=== PATIENT | male | born 1945 | race Two or more races ===

== ENCOUNTER 2023-07-16 13:58 | Inpatient (IN) | payer MEDICARE, OTHER ==
[~2023-07-16] VITALS: Ht 182.9 cm; Wt 96.0 kg
[2023-07-16] MEDS: DexAMETHasone SOD PHOS 10MG/1ML VIAL INJ IM ONE (14:22)
[2023-07-16] MEDS: IPRATROPIUM BROM 0.5 MG/2.5ML INH SOL NEB ONE (14:50)
[2023-07-16] MEDS: ALBUTEROL SULF 2.5 MG/0.5ML(0.5%) NEB SOLN NEB ONE (14:50)
[2023-07-16 15:00] LABS: Basophils # (auto) 0.1 10 ^3/uL (0-0.2); Basophils % (auto) 0.8 % (0.0-2.0); Eosinophils # (auto) 0.1 10 ^3/uL (0-0.8); Hematocrit 43.2 % (41.0-53.0); Hemoglobin 14.1 g/dL (13.5-17.5); Lymphocytes # (auto) 1.4 10 ^3/uL (0.4-5.4); Lymphocytes % (auto) 13.6 % (10.0-50.0); Mean Corpuscular Hemoglobin 33.6 pg (28.0-32.0); Mean Corpuscular Hgb Conc. 32.6 g/dL (32.0-36.0); Mean Corpuscular Volume 103.1 fL (80.0-100.0); Monocytes # (auto) 0.8 10 ^3/uL (0-1.3); Neutrophils # (auto) 7.6 10 ^3/uL (1.6-8.6); Neutrophils % (auto) 76.6 % (37.0-80.0); Nucleated Red Blood Cells % 0.2 %; Red Cell Distribution Width 14.6 % (11.8-14.3); White Blood Cell 9.9 10^3/uL (4.4-10.8)
[2023-07-16 15:17] LABS: Alanine Aminotransferase 36 U/L (7-40); Alkaline Phosphatase 145 U/L (46-116); Anion Gap 8 (5-15); Aspartate Aminotransferase 23 U/L (13-40); BUN/Creatinine Ratio 33.1 (10.0-20.0); Calcium 9.4 mg/dL (8.7-10.4); Carbon Dioxide 28 mmol/L (20-30); Chloride 109 mmol/L (98-107); Glucose 143 mg/dL (74-106); Lipase 122 U/L (12-53); Sodium 145 mmol/L (136-145)
[2023-07-16 15:18] LABS: Bilirubin, Total 0.6 mg/dL (0.2-1.0); Total Protein 6.6 g/dL (5.7-8.2)
[2023-07-16 15:22] LABS: Blood Urea Nitrogen 103 mg/dL (9-23)
[2023-07-16] MEDS: FUROSEMIDE 40 MG/4 ML VIAL IV ONE (19:15)
[2023-07-16 20:07] VITALS: PULSE 80; RESP 20; O2SAT 94
[2023-07-16] MEDS ORDERED: HYDROcodone-ACET 5/325MG TAB PO PRN (21:15)
[2023-07-16] MEDS ORDERED: DOCUSATE SOD 100 MG CAP PO PRN (21:15)
[2023-07-16] MEDS ORDERED: DEXTROSE (50%) 50ML SYRG IV PRN (21:15)
[2023-07-16] MEDS ORDERED: ONDANSETRON HCL 4 MG/2 ML VIAL IV PRN (21:15)
[2023-07-16] MEDS ORDERED: ACETAMINOPHEN 325 MG TAB PO PRN (21:15)
[2023-07-16] MEDS: ACCU-CHEK COMFORT CURVE STRIP VI SCH (22:29)
[2023-07-16] MEDS: FAMOTIDINE (10MG/ML) 2ML VL IV SCH (22:33)
[2023-07-16] MEDS: ATORVASTATIN 20 MG TAB PO SCH (22:34)
[2023-07-16] MEDS: HEPARIN SODIUM (PORCINE) 5000 UNITS/ML 1ML VIAL SC SCH (22:34)
[2023-07-16] MEDS: InsuLIN REG 1unit/0.01ml Soln (100units/ml) SC SCH (22:37)
[2023-07-16 23:35] VITALS: O2SAT 97
[2023-07-16 23:36] VITALS: BP 122/50; PULSE 80; TEMP 98.2; O2SAT 97
[2023-07-16] MEDS ORDERED: MORPHINE SULFATE INJ 2 MG/ml SYRG IV PRN (23:45)
[2023-07-16] MEDS ORDERED: NITROGLYCERIN 0.4 MG SL TAB SL PRN (23:45)
[2023-07-17] VITALS (10 sets, daily range): BP systolic 114–143; BP diastolic 55–68; PULSE 67–88; RESP 16–20; TEMP 97.6–98.2; O2SAT 95–99
[2023-07-17] MEDS: InsuLIN REG 1unit/0.01ml Soln (100units/ml) SC SCH (06:43)
[2023-07-17] MEDS: LEVOTHYROXINE SODIUM 50 MCG TAB PO SCH (06:44)
[2023-07-17 07:14] LABS: Basophils # (auto) 0 10 ^3/uL (0-0.2); Eosinophils # (auto) 0 10 ^3/uL (0-0.8); Hemoglobin 14.1 g/dL (13.5-17.5); Lymphocytes # (auto) 0.4 10 ^3/uL (0.4-5.4); Lymphocytes % (auto) 7.3 % (10.0-50.0); Monocytes # (auto) 0.2 10 ^3/uL (0-1.3); Monocytes % (auto) 3.7 % (0.0-12.0); Neutrophils # (auto) 5.3 10 ^3/uL (1.6-8.6); Red Cell Distribution Width 14.3 % (11.8-14.3); White Blood Cell 5.9 10^3/uL (4.4-10.8)
[2023-07-17 07:19] LABS: Basophils % (auto) 0.1 % (0.0-2.0); Hematocrit 42.4 % (41.0-53.0); Mean Corpuscular Hemoglobin 34.4 pg (28.0-32.0); Mean Corpuscular Hgb Conc. 33.3 g/dL (32.0-36.0); Mean Corpuscular Volume 103.2 fL (80.0-100.0); Neutrophils % (auto) 88.9 % (37.0-80.0); Red Blood Cells 4.11 10^6/uL (4.5-5.90)
[2023-07-17 07:31] LABS: Alanine Aminotransferase 28 U/L (7-40); Albumin 4.2 g/dL (3.2-4.8); Alkaline Phosphatase 130 U/L (46-116); Anion Gap 13 (5-15); Aspartate Aminotransferase 18 U/L (13-40); BUN/Creatinine Ratio 30.9 (10.0-20.0); Bilirubin, Total 0.9 mg/dL (0.2-1.0); Carbon Dioxide 23 mmol/L (20-30); Chloride 109 mmol/L (98-107); Potassium 4.5 mmol/L (3.5-5.1); Sodium 145 mmol/L (136-145); Total Protein 7.2 g/dL (5.7-8.2)
[2023-07-17 07:33] LABS: Glucose 274 mg/dL (74-106)
[2023-07-17 07:36] LABS: Blood Urea Nitrogen 92 mg/dL (9-23)
[2023-07-17] MEDS: B-COMPLEX W/ C & FOLIC ACID(NEPHROVITE TAB) PO SCH (10:29)
[2023-07-17] MEDS: ASPirin 81 mg TAB PO SCH (10:30)
[2023-07-17] MEDS: FUROSEMIDE 100 MG/10ML VIAL IV SCH (18:10)
[2023-07-17 22:00] LABS: Urine Bacteria None Seen /hpf (None Seen)
[2023-07-17 22:20] LABS: Urine Blood Negative /uL (Negative); Urine Clarity Clear (Clear); Urine Color Colorless (Yellow); Urine Protein, UAD Negative (Negative); Urine Specific Gravity 1.008 (1.001-1.035); Urine Urobilinogen Normal (Negative); Urine WBC <1 /hpf (0 - 3)
[2023-07-17 22:51] LABS: Sodium Urine 93 mmol/L (40-220)
[2023-07-17 22:56] LABS: Protein, Urine < 6.0 mg/dL (0.0-11.9)
[2023-07-17 22:59] LABS: Creatinine, Urine 23.96 mg/dL (30.0-125.0)
[2023-07-18] VITALS (9 sets, daily range): BP systolic 94–137; BP diastolic 58–70; PULSE 52–112; RESP 16–18; TEMP 97.6–98.4; O2SAT 95–100
[2023-07-18 07:30] LABS: Anion Gap 11 (5-15); Carbon Dioxide 25 mmol/L (20-30); Chloride 109 mmol/L (98-107); Potassium 4.2 mmol/L (3.5-5.1); Sodium 145 mmol/L (136-145)
[2023-07-18 07:31] LABS: Calcium 10.1 mg/dL (8.5-10.1)
[2023-07-18 07:36] LABS: BUN/Creatinine Ratio 30.5 (10.0-20.0)
[2023-07-18 07:39] LABS: Blood Urea Nitrogen 76 mg/dL (9-23); Glucose 145 mg/dL (74-106)
[2023-07-18] MEDS: CLOPIDOGREL BISULFATE 75 MG TAB PO SCH (10:07)
[2023-07-18 11:06] LABS: PSA Free 1.51 ng/mL; Prostate Specific Antigen 4.3 ng/mL (0.0-4.0)
[2023-07-18] MEDS: IPRATROPIUM BROM 0.5 MG/2.5ML INH SOL NEB PRN (11:25)
[2023-07-18] MEDS: ALBUTEROL SULF 2.5 MG/0.5ML(0.5%) NEB SOLN NEB PRN (11:25)
[2023-07-18] MEDS ORDERED: GABA-1250 PO (20:05)
[2023-07-18] MEDS ORDERED: CLOP75TA28 PO (20:05)
[2023-07-18] MEDS ORDERED: METO25TA93 PO (20:05)
[2023-07-18] MEDS ORDERED: ALLO100T PO (20:05)
[2023-07-18] MEDS ORDERED: TRAM50TA2 PO (20:07)
[2023-07-18] MEDS ORDERED: FURO40TA4 PO (20:07)
[2023-07-18] MEDS ORDERED: LEVO150T10 PO (20:07)
[2023-07-18] MEDS ORDERED: EMPA1TAB PO (20:07)
[2023-07-18] MEDS ORDERED: SACU1TAB7 PO (20:07)
[2023-07-19] VITALS (11 sets, daily range): BP systolic 119–146; BP diastolic 64–80; PULSE 63–102; RESP 16–20; TEMP 97.4–98.2; O2SAT 96–99
[2023-07-19 05:13] LABS: Chloride 109 mmol/L (98-107); Potassium 3.7 mmol/L (3.5-5.1); Sodium 143 mmol/L (136-145)
[2023-07-19 05:14] LABS: Anion Gap 8 (5-15); Carbon Dioxide 26 mmol/L (20-30)
[2023-07-19 05:15] LABS: Calcium 9.3 mg/dL (8.7-10.4)
[2023-07-19 05:19] LABS: Glucose 140 mg/dL (74-106)
[2023-07-19 05:20] LABS: BUN/Creatinine Ratio 31.6 (10.0-20.0); Blood Urea Nitrogen 73 mg/dL (9-23)
[2023-07-19] MEDS: ENOXAPARIN SOD 40 MG/0.4 ML SYRINGE SC SCH (09:16)
[2023-07-19] MEDS ORDERED: FURO20TA3 PO (15:55)
[2023-07-19] MEDS ORDERED: ATOR10TA PO (15:59)
[2023-07-19] MEDS ORDERED: INSU1.2I SC (15:59)
[2023-07-19] MEDS ORDERED: FERR1TAB8 PO (15:59)
[2023-07-19] MEDS ORDERED: PANT40TA2 PO (15:59)
[2023-07-19] MEDS: TAMSULOSIN HYDROCHLORIDE 0.4 MG CAP PO SCH (17:25)
[2023-07-20 00:33] VITALS: BP 129/72; PULSE 87; RESP 15; TEMP 97.6; O2SAT 97
[2023-07-20 05:48] LABS: Anion Gap 8 (5-15); Carbon Dioxide 24 mmol/L (20-30); Chloride 109 mmol/L (98-107); Potassium 3.5 mmol/L (3.5-5.1); Sodium 141 mmol/L (136-145)
[2023-07-20 05:49] LABS: Calcium 9.3 mg/dL (8.7-10.4)
[2023-07-20 05:54] LABS: BUN/Creatinine Ratio 31.3 (10.0-20.0); Glucose 157 mg/dL (74-106)
[2023-07-20 06:25] LABS: Blood Urea Nitrogen 62 mg/dL (9-23)
[2023-07-20 08:15] VITALS: PULSE 96
[2023-07-20 09:00] VITALS: BP 127/65; PULSE 87; RESP 20; TEMP 97.6; O2SAT 94
[2023-07-20 10:48] VITALS: O2SAT 98
[2023-07-20 12:09] VITALS: BP 127/65; PULSE 87; RESP 20; TEMP 97.6; O2SAT 94
[2023-07-20] MEDS ORDERED: SACUBITRIL-VALSARTAN 24mg/26mg TAB PO SCH (16:00)
== END 2023-07-20 13:10 | disposition home or self-care (01) | DRG 291 ==
LOC: ER 13:58 → TELE 23:46 → TELE-WESTW 07-17 06:26
PROVIDERS: ADMIT Nurse Practitioner Family; ATTEND Family Medicine
DX: I13.2 Hypertensive heart and chronic kidney disease with heart failure and with stage 5 chronic kidney disease, or end stage renal disease (principal); I50.23 Acute on chronic systolic (congestive) heart failure; J96.01 Acute respiratory failure with hypoxia; N18.6 End stage renal disease; N17.9 Acute kidney failure, unspecified; J44.1 Chronic obstructive pulmonary disease with (acute) exacerbation; E11.51 Type 2 diabetes mellitus with diabetic peripheral angiopathy without gangrene; E11.22 Type 2 diabetes mellitus with diabetic chronic kidney disease; I48.91 Unspecified atrial fibrillation; E78.00 Pure hypercholesterolemia, unspecified; I95.9 Hypotension, unspecified; I25.10 Atherosclerotic heart disease of native coronary artery without angina pectoris; N41.9 Inflammatory disease of prostate, unspecified; M17.0 Bilateral primary osteoarthritis of knee; I34.0 Nonrheumatic mitral (valve) insufficiency; E03.9 Hypothyroidism, unspecified; N40.0 Benign prostatic hyperplasia without lower urinary tract symptoms; K62.89 Other specified diseases of anus and rectum; Z79.02 Long term (current) use of antithrombotics/antiplatelets; Z95.1 Presence of aortocoronary bypass graft; Z79.82 Long term (current) use of aspirin; Z98.61 Coronary angioplasty status; Z79.4 Long term (current) use of insulin; Z79.899 Other long term (current) drug therapy
CPT/HCPCS: 36415; 71045; 71250; 74176; 76775; 80048; 80053; 81001; 82570; 82962; 83605; 83690; 83880; 84154; 84156; 84300; 84443; 84484; 85025; 93005; 93306; 94640; 96372; 96374; 97163; G0378; J1100; J1815; J3490

== ENCOUNTER 2024-10-09 04:14 | Inpatient (IN) | payer MEDICARE, OTHER ==
[2024-10-09] VITALS (12 sets, daily range): BP systolic 117–151; BP diastolic 62–87; PULSE 94–113; RESP 20–28; TEMP 98–99.3; O2SAT 92–100
[~2024-10-09] VITALS: Ht 182.9 cm; Wt 98.1 kg
[~2024-10-09 04:14] MED LIST: ALLO100T PO; ATOR10TA PO; CLOP75TA28 PO; EMPA1TAB PO; FERR1TAB8 PO; FURO20TA3 PO; GABA-1250 PO; INSU1.2I SC; LEVO150T10 PO; METO25TA93 PO; PANT40TA2 PO; SACU1TAB7 PO; TRAM50TA2 PO
--- NOTE | 2024-10-09 04:40 | ED.PDOC ---
History of Present Illness HPI Comments 79-year-old male with a history of CHF, AFib, hypertension, dyslipidemia and oxygen dependence brought in by EMS, transferred from [facility] for CHF exacerbation. Patient presented there complaining of shortness of breath that started yesterday. Workup included CT chest which show ed moderate right and small left pleural effusions, subtle diffuse perilymphatic nodularity, nonspecific but may reflect an infectious/inflammatory etiology. Labs there were remarkable for potassium of 5.4, BUN 71 and creatinine 2.3, BNP was 9840, troponin was within normal limits. On arrival to ED, the patient states he is not in respiratory distress on oxygen by mask and is not having chest pain. Chief Complaint: Shortness of Breath Time Seen by MD: 04:33 Primary Care Provider: DAYA Allergies: Coded Allergies: Codeine (Verified Allergy, Mild, hives, 07/19/23) Iodine (Verified Allergy, Unknown, 07/16/23) Warfarin (Verified Allergy, Unknown, 10/09/24) Home Meds Reported Medications Atorvastatin Calcium (Lipitor) 10 Mg Tab, 1 TAB PO DAILY 07/19/23 Insulin Glargine (Toujeo Solostar) 300 Unit/Ml Inj, 50 UNIT SC DAILY 07/19/23 Ferrous Sulfate (Gnp Iron) 325 Mg Tab, 1 TAB PO BID 07/19/23 Pantoprazole Sodium Sesquihydr (Protonix) 40 Mg Tab, 1 TAB PO DAILY 07/19/23 Furosemide (Furosemide) 20 Mg Tab, PO UD Take 1 tablet (20 mg) by mouth in the morning, and take 2 tablets (40 mg) by mouth in the evening. 07/19/23 Tramadol Hcl (Tramadol Hcl) 50 Mg Tab, 1 TAB PO BID 07/18/23 Empagliflozin (Jardiance) 10 Mg Tab, 10 MG PO, TAB 07/18/23 Levothyroxine Sodium (Levothyroxine Sodium) 150 Mcg Tab, 150 MCG PO QAM for 30 Days 07/18/23 Sacubitril-Valsartan (Entresto 49-51 mg) 1 Tab Tab, 1 TAB PO BID 07/18/23 Gabapentin (Gabapentin) 300 Mg Cap, 1 CAP PO BID, #90 CAP 5 Refills 07/18/23 Allopurinol (Allopurinol) 100 Mg Tab, 3 TAB PO DAILY 07/18/23 Metoprolol Succinate (Metoprolol Succinate Er) 25 Mg Tab, 25 MG PO DAILY for 30 Days, MG 07/18/23 Clopidogrel Bisulfate (Plavix) 75 Mg Tab, 1 TAB PO DAILY, #90 TAB 1 Refill 07/18/23 Mode of Arrival: EMS Past Medical History PAST MEDICAL HISTORY: AFIB, CHF, CKF, COPD, DM, HTN Surgical History: CABG, Denies all surgeries Family History Family History: Reviewed,noncontributory to illness Social History Smoker: Cigarettes Alcohol: Denies ETOH Use Drugs: Denies Drug Use Lives In: Home All Other Systems: Reviewed and Negative (Comprehensive systems review obtained and negative except for what is stated in the HPI.) Physical Exam General Appearance: No Apparent Distress HEENT: Other (Pupils and face symmetric. Moist mucous membranes.) Neck: Full Range of Motion, Normal Inspection Respiratory: Decreased Breath Sounds, No Accessory Muscle Use, No Respiratory Distress Cardiovascular: JVD, Tachycardia Breast Exam: Deferred Gastrointestinal: Non Tender, Soft Genitalia: Deferred Pelvic: Deferred Rectal: Deferred Extremities: Leg edema, Normal range of motion, Pedal edema Neurologic: Alert (Oriented x4), Normal Affect, Normal Mood, Other (No gross focal deficit) Cerebellar Function: NOT DONE Reflexes: NOT DONE Skin: Dry, Normal Color, Warm Lymphatic: NOT DONE Was a procedure done? Was a procedure done?: No EKG EKG : Comments AFib with RVR, rate 103, QRS prolonged at 135, QTC prolonged at 517, normal axis, nonspecific T changes. Differential Dx Considerations may include: CHF, COPD, rapid AFib, mi, PE, among others X-Ray, Labs, Meds, VS Vital Signs Date Time Temp Pulse Resp B/P (MAP) Pulse Ox O2 Delivery O2 Flow Rate FiO2 10/09/24 06:00 98.2 119 24 144/65 (91) 97 98.2 10/09/24 04:42 110 25 96 Simple Mask* 6 50 10/09/24 04:39 97.9 116 24 143/60 (87) 96 97.9 10/09/24 04:19 103 10/09/24 04:18 98.7 102 20 131/64 97 98.7 Lab Test 10/09/24 05:56 10/09/24 04:48 Range/Units Troponin I High Sensitivity 24 27 </=54 ng/L X-Ray, Labs, Meds, VS Comment 79-year-old male with a history of CHF, AFib, hypertension, dyslipidemia and oxygen dependence transferred from [facility] with CHF exacerbation and rapid afib Vitals remarkable for heart rate 102 Exam remarkable for diminished breath sounds at bilateral bases, irregularly irregular tachycardia, 2+ bilateral leg edema EKG independently interpreted by me: AFib with RVR, rate 103, QRS prolonged at 135, QTC prolonged at 517, normal axis, possible old lateral infarct, nonspecific T change First troponin negative Plan is to admit the patient for diuresis, ongoing rate control and Cardiology evaluation. Time of 1ST Reevaluation: 04:38 Reevaluation 1ST: Unchanged Patient Education/Counseling: Diagnosis, Treatment Family Education/Counseling: No Family Present SEPSIS Sepsis Screen Date sepsis recognized/suspect: Oct 09, 2024 Time Sepsis recognized/suspect: 423 Recent Procedure: No On Antibiotic Therapy: No Respiratory Rate >20: No Heart Rate >90: Yes Temp<36 C (96.8 F) or >38.3 C: No SBP <90 or MAP <65 mmHG: No New Acute Mental Status Change: No Is the patient on CPAP, BIPAP,: No SEPSIS EXCLUSION NOTE: Sepsis Exclusion Note: Patient presents with SIRS criteria, but the SIRS response is attributed to [AFib with RVR ], not a suspected infection. Sepsis bundle is not initiated at this time, due to this reason. Further management will focus on the treatment of the above condition (s). Physician Orders Chest Portable (10/09/24 04:33) Troponin-I Hs (10/09/24 07:33) Vital Signs Date Time Temp Pulse Resp B/P (MAP) Pulse Ox O2 Delivery O2 Flow Rate FiO2 10/09/24 06:00 98.2 119 24 144/65 (91) 97 98.2 10/09/24 04:42 110 25 96 Simple Mask* 6 50 10/09/24 04:39 97.9 116 24 143/60 (87) 96 97.9 10/09/24 04:19 103 10/09/24 04:18 98.7 102 20 131/64 97 98.7 Departure 1 Departure Time of Disposition: 04:38 Impression: Primary Impression: Acute respiratory failure Additional Impressions: CHF exacerbation Rapid atrial fibrillation Disposition: ADMITTED INPATIENT Admit to: Tele Condition: Guarded Critical Care Note Critical Care Time?: No Stability Stability form required: No Heart Score Heart Score: Heart Score Response (Comments) Value History N/A 0 EKG N/A 0 Age N/A 0 Risk Factors N/A 0 Troponin N/A 0 Total 0 CANDELARIA LAY MD Oct 09, 2024 04:40
--- NOTE | 2024-10-09 06:40 | ECG ---
[facility] Test Date: 2024-10-09 Test Time: 04:19:56 Pat Name: DAMION ALCAZAR Department: ED Room: 0219T Gender: M Rework Operator: ANDREAS : 1945 Requested By: EMERGENCY EMERGENCY Order Number: [id number] Reading MD: Gibran Mcgee Measurements Intervals Ensign Rate: 103 P: 0 TN: 0 QRS: 175 QRSD: 135 T: 12 QT: 395 QTc: 517 Interpretive Statements Atrial fibrillation Right bundle branch block Borderline ST elevation, anterolateral leads Baseline wander in lead(s) V2 Electronically Signed On 10-09-2024 22:10:06 PDT by Gibran Mcgee Please click the below link to view image of tracing.
--- NOTE | 2024-10-09 06:46 | DVH ---
CHEST RADIOGRAPH Indication: SOB. Technique: Single frontal view of the chest was obtained Comparison: XY CHEST PORTABLE on DOS: 07/17/23 FINDINGS: Lines and Tubes: None Lungs: Bilateral airspace disease increased since prior study. Pleura: No effusion. No pneumothorax. Cardiomediastinal contours: Cardiomegaly. Bones: No acute osseous abnormality. Status post CABG. IMPRESSION: 1. Worsening bilateral airspace disease. 2. Cardiomegaly.
[2024-10-09 09:28] LABS: Hematocrit 33.9 % (41.0-53.0); Hemoglobin 11.4 g/dL (13.5-17.5); Mean Corpuscular Hemoglobin 33.8 pg (28.0-32.0); Mean Corpuscular Volume 100.7 fL (80.0-100.0); Nucleated Red Blood Cells % 0.1 %
[2024-10-09 09:38] LABS: Alanine Aminotransferase 15 U/L (7-40); Albumin 4.2 g/dL (3.2-4.8); Anion Gap 15 (5-15); BUN/Creatinine Ratio 28.9 (10.0-20.0); Bilirubin, Total 1.1 mg/dL (0.2-1.0); Calcium 9.6 mg/dL (8.7-10.4); Carbon Dioxide 27 mmol/L (20-31); Chloride 107 mmol/L (98-107); Total Protein 6.9 g/dL (5.7-8.2)
[2024-10-09 09:43] LABS: Alkaline Phosphatase 147 U/L (46-116); Blood Urea Nitrogen 66 mg/dL (9-23); Glucose 129 mg/dL (74-106); Potassium 5.3 mmol/L (3.5-5.1); Sodium 149 mmol/L (136-145)
[2024-10-09] MEDS ORDERED: NITROGLYCERIN 0.4 MG SL TAB SL PRN (11:00)
[2024-10-09] MEDS ORDERED: ACETAMINOPHEN 325 MG TAB PO PRN (11:00)
[2024-10-09] MEDS ORDERED: MORPHINE SULFATE INJ 2 MG/ml SYRG IV PRN (11:00)
[2024-10-09] MEDS ORDERED: DOCUSATE SOD 100 MG CAP PO PRN (11:00)
[2024-10-09] MEDS ORDERED: HYDROcodone-ACET 5/325MG TAB PO PRN (11:00)
[2024-10-09] MEDS ORDERED: ONDANSETRON HCL 4 MG/2 ML VIAL IV PRN (11:00)
[2024-10-09] MEDS: FUROSEMIDE 100 MG/10ML VIAL IV ONE (11:19)
[2024-10-09] MEDS ORDERED: FURO40TA4 PO (11:26)
[2024-10-09] MEDS ORDERED: LEVO137T3 PO (11:26)
[2024-10-09] MEDS ORDERED: DEXTROSE (50%) 50ML SYRG IV PRN (11:30)
[2024-10-09] MEDS: InsuLIN REG 1unit/0.01ml Soln (100units/ml) SC SCH ×2 (11:30→21:25)
--- NOTE | 2024-10-09 11:39 | DVHHP2 ---
History of Present Illness Reason for Visit: Shortness of breath History of Present Illness Steven An is a 79-year-old male with past medical history of CHF, atrial fibrillation, hypertension, hyperlipidemia, home oxygen use at /OR, chronic kidney disease, and anxiety, who came to the hospital for shortness of breath. Annemarie buck lives up in [place]. He began experiencing shortness of breath and went to their hospital. He was transferred here for higher level of care. He follows with Dr. Brizuela for cardiology, and Dr. Stern for nephrology. States he has been compliant with his medications. Does state he drinks about 4oz of liquor/day. Cardiovascular: CHF, HTN, MO, hyperipidemia Pulmonary: COPD (on home oxygen) Psych: Anxiety Renal/: Chronic renal insuff Endocrine: Diabetes Past Surgical History: Cholecystectomy, CABG Smoke: No ALCOHOL: heavy (4 oz daily) Drugs: None Lives: with Family Review of Systems Constitutional: No: Fever, Chills, Sweats, Weakness, Malaise, Other Eyes: No: Pain, Vision change, Conjunctivae inflammation, Eyelid inflammation, Other, Redness ENT: No: Ear pain, Ear discharge, Nose pain, Nose discharge, Nose congestion, Mouth pain, Mouth swelling, Throat pain, Throat swelling, Other Respiratory: Shortness of breath, SOB with excertion, Wheezing, Pleuritic Pain; No: Cough, Dry, Hemoptysis, Sputum, Wheezing, Other Cardiovascular: No: Chest Pain, Palpitations, Orthopnea, Paroxysmal Noc. Dyspnea, Edema, Lt Headedness, Other Gastrointestinal: No: Nausea, Vomiting, Abdominal Pain, Diarrhea, Constipation, Melena, Hematochezia, Other Genitourinary: No Dysuria, No Frequency, No Incontinence, No Hematuria, No Retention, No Other Musculoskeletal: No: other, neck pain, shoulder pain, arm pain, back pain, hand pain, leg pain, foot pain Skin: No: Rash, Lesions, Jaundice, Bruising, Other Neurological: No: Weakness, Numbness, Incoordination, Change in speech, Confusion, Seizures, Other Allergies: Coded Allergies: Codeine (Verified Allergy, Mild, hives, 07/19/23) Iodine (Verified Allergy, Unknown, 07/16/23) Warfarin (Verified Allergy, Unknown, 10/09/24) Medications Current Medications Medications Dose Ordered Sig/Herbert Route Start Time Stop Time Status Last Admin Dose Admin Sodium Chloride 10 ml Q8HR IV 10/09/24 14:00 UNV Acetaminophen/ Hydrocodone Bitart 1 tab Q4HP PRN PO 10/09/24 11:00 UNV Ondansetron HCl 4 mg Q4HP PRN IV 10/09/24 11:00 UNV Docusate Sodium 100 mg BIDPRN PRN PO 10/09/24 11:00 UNV Acetaminophen 650 mg Q6HP PRN PO 10/09/24 11:00 UNV Nitroglycerin 0.4 mg Q5MINP PRN SL 10/09/24 11:00 UNV Morphine Sulfate 2 mg Q30M PRN IV 10/09/24 11:00 UNV Furosemide 80 mg BIDD IV 10/09/24 18:00 UNV Exam Vital Signs Vital Signs Date Time Temp Pulse Resp B/P (MAP) Pulse Ox O2 Delivery O2 Flow Rate FiO2 10/09/24 10:55 94 24 148/72 (97) 96 10/09/24 09:16 Nasal Cannula* 2 28 10/09/24 07:30 98.0 98.0 General Appearance: Alert, Oriented X3, moderate distress HEENT: Atraumatic, PERRLA Respiratory: Other (Diminished breath sounds) Cardiovascular: Normal S1, Normal S2, Other (ST) Abdominal: Normal bowel sounds, Soft, No tenderness Extremities: No clubbing, No cyanosis, No edema, Normal pulses Skin: No rashes, No breakdown, No significant lesion Neuro: Normal gait, Normal speech Labs/Xrays Labs Test 10/09/24 10:40 10/09/24 07:48 Range/Units White Blood Count 7.5 4.4-10.8 10^3/uL Red Blood Count 3.37 L 4.5-5.90 10^6/uL Hemoglobin 11.4 L 13.5-17.5 g/dL Hematocrit 33.9 L 41.0-53.0 % Mean Corpuscular Volume 100.7 H 80.0-100.0 fL Mean Corpuscular Hemoglobin 33.8 H 28.0-32.0 pg Mean Corpuscular Hemoglobin Concent 33.6 32.0-36.0 g/dL Red Cell Distribution Width 16.1 H 11.8-14.3 % Platelet Count 137 L 140-450 10^3/uL Mean Platelet Volume 10.2 6.9-10.8 fL Neutrophils (%) (Auto) 76.7 37.0-80.0 % Lymphocytes (%) (Auto) 9.6 L 10.0-50.0 % Monocytes (%) (Auto) 10.4 0.0-12.0 % Eosinophils (%) (Auto) 2.5 0.0-7.0 % Basophils (%) (Auto) 0.8 0.0-2.0 % Neutrophils # (Auto) 5.7 1.6-8.6 10 ^3/uL Lymphocytes # (Auto) 0.7 0.4-5.4 10 ^3/uL Monocytes # (Auto) 0.8 0-1.3 10 ^3/uL Eosinophils # (Auto) 0.2 0-0.8 10 ^3/uL Basophils # (Auto) 0.1 0-0.2 10 ^3/uL Nucleated Red Blood Cells 0.1 % Sodium Level 149 H 136-145 mmol/L Potassium Level 5.3 H 3.5-5.1 mmol/L Chloride Level 107 98-107 mmol/L Carbon Dioxide Level 27 20-31 mmol/L Anion Gap 15 5-15 Blood Urea Nitrogen 66 H 9-23 mg/dL Creatinine 2.28 H 0.700-1.30 mg/dL Glomerular Filtration Rate Calc 29 >90 mL/min BUN/Creatinine Ratio 28.9 H 10.0-20.0 Serum Glucose 129 H 74-106 mg/dL Calcium Level 9.6 8.7-10.4 mg/dL Total Bilirubin 1.1 H 0.2-1.0 mg/dL Aspartate Amino Transferase (AST) 21 13-40 U/L Alanine Aminotransferase (ALT) 15 7-40 U/L Alkaline Phosphatase 147 H 46-116 U/L B-Type Natriuretic Peptide 1586.28 0-100 pg/mL Total Protein 6.9 5.7-8.2 g/dL Albumin 4.2 3.2-4.8 g/dL CHEST RADIOGRAPH FINDINGS: Lines and Tubes: None Lungs: Bilateral airspace disease increased since prior study. Pleura: No effusion. No pneumothorax. Cardiomediastinal contours: Cardiomegaly. Bones: No acute osseous abnormality. Status post CABG. IMPRESSION: 1. Worsening bilateral airspace disease. 2. Cardiomegaly. SEPSIS Sepsis Screen Date sepsis recognized/suspect: Oct 09, 2024 Time Sepsis recognized/suspect: 1034 Recent Procedure: No On Antibiotic Therapy: No Respiratory Rate >20: No Heart Rate >90: Yes Temp<36 C (96.8 F) or >38.3 C: No SBP <90 or MAP <65 mmHG: No New Acute Mental Status Change: No Is the patient on CPAP, BIPAP,: No Physician Orders Chest Portable (10/09/24 04:33) Troponin-I Hs (10/09/24 09:37) Troponin-I Hs (10/09/24 10:37) Troponin-I Hs (10/09/24 12:37) Admit (10/09/24 10:53) Code Status (10/09/24 10:53) Sodium Chloride Lock (Saline Lock Ns) (10/09/24 14:00) Hydrocodone-Acet 5/325mg Tab ([place] 5/32 (10/09/24 11:00) Ondansetron Hcl (Zofran) (10/09/24 11:00) Docusate Sodium Capsule (Colace Capsule) (10/09/24 11:00) Complete Blood Count (10/10/24 04:00) Comprehensive Metabolic Panel (10/10/24 04:00) Cardiac Diet-2gna,Lofat,Lochol (10/09/24 Lunch) Echo 2d Mode Cardiac Dop (10/09/24 10:53) Condition: Serious (10/09/24 10:53) Acetaminophen Tablet (Tylenol Tablet) (10/09/24 11:00) Nitroglycerin Sublingual (Ntrostat Subli (10/09/24 11:00) Morphine Sulfate Injection (10/09/24 11:00) Stat Ekg For Chest Pain (10/09/24 10:53) Notify Md Of Changes From Base (10/09/24 10:53) Metal Cut Off Saw Operator For 24 Hours (10/09/24 10:53) Emergency Dysrhythmia Protocol (10/09/24 10:53) Rhythm Strips Once Every Shift (10/09/24 10:53) Oxygen By Nasal Cannula (10/09/24 10:53) Furosemide Injection (Lasix Injection) (10/09/24 18:00) Furosemide Injection (Lasix Injection) (10/09/24 11:00) Maintain Fluid Restrictions QSHIFT (10/09/24 10:53) Vital Signs Date Time Temp Pulse Resp B/P (MAP) Pulse Ox O2 Delivery O2 Flow Rate FiO2 10/09/24 10:55 94 24 148/72 (97) 96 10/09/24 09:16 95 Nasal Cannula* 2 28 10/09/24 09:00 107 20 145/73 (97) 95 10/09/24 08:15 106 98 Nasal Cannula* 2 N/A Simple Mask* 10/09/24 07:30 98.0 106 23 145/64 (91) 96 98.0 10/09/24 06:00 98.2 119 24 144/65 (91) 97 98.2 10/09/24 04:42 110 25 96 Simple Mask* 6 50 10/09/24 04:39 97.9 116 24 143/60 (87) 96 97.9 10/09/24 04:19 103 10/09/24 04:18 98.7 102 20 131/64 97 98.7 Laboratory Tests Test 10/09/24 07:48 White Blood Count 7.5 10^3/uL (4.4-10.8) Assessment/Plan Assessment/Plan Assessment: CHF exacerbation, Atrial fibrillation, Cardiomegaly, Possible pneumonia, Hyperkalemia, Pleural effusion, COPD, Hypertension, Hyperlipidemia, Chronic kidney disease, Diabetes, Plan: Admit to Tele, Cardiology consult, IV Lasix, ECHO, Supplemental oxygen as needed, Breathing treatments as needed, Fluid restriction, Consider IR consult if pleural effusion increase, Home medications reconciled, Plan discussed with: Patient My Orders Orders - TAMIA DE GUZMAN NUMERICAL CONTROL ROUTER OPERATOR Procedure Category Date Status Time Troponin-I Hs LAB 10/09/24 In Process 09:37 Troponin-I Hs LAB 10/09/24 Logged 10:37 Troponin-I Hs LAB 10/09/24 Logged 12:37 Admit ADMIT 10/09/24 Transmitted 10:53 Code Status CODE 10/09/24 Transmitted 10:53 Sodium Chloride Lock PHA 10/09/24 Logged (Saline Lock Ns) 14:00 Hydrocodone-Acet PHA 10/09/24 Logged 5/325mg Tab ([place] 11:00 Ondansetron Hcl PHA 10/09/24 Logged (Zofran) 11:00 Docusate Sodium PHA 10/09/24 Logged Capsule (Colace 11:00 Complete Blood Count LAB 10/10/24 Verified 04:00 Comprehensive LAB 10/10/24 Verified Metabolic Panel 04:00 Cardiac DIET 10/09/24 Transmitted Diet-2gna,Lofat,Lochol Lunch Echo 2d Mode Cardiac US 10/09/24 Logged DOP 10:53 Condition: Serious SAM 10/09/24 Transmitted 10:53 Acetaminophen Tablet [facility] 10/09/24 Logged (Tylenol Tablet) 11:00 Nitroglycerin [facility] 10/09/24 Logged Sublingual (Ntrostat 11:00 Morphine Sulfate [facility] 10/09/24 Logged Injection 11:00 Stat Ekg For Chest [facility] 10/09/24 Transmitted Pain 10:53 Notify Md Of Changes [facility] 10/09/24 Transmitted From Base 10:53 Metal Cut Off Saw Operator For [facility] 10/09/24 Transmitted 24 Hours 10:53 Emergency Dysrhythmia [facility] 10/09/24 Transmitted Protocol 10:53 Rhythm Strips Once [facility] 10/09/24 Transmitted Every Shift 10:53 Oxygen By Nasal RT 10/09/24 Transmitted Cannula 10:53 Furosemide Injection [facility] 10/09/24 Logged (Lasix Injection) 18:00 Furosemide Injection [facility] 10/09/24 Transmitted (Lasix Injection) 11:00 Maintain Fluid [facility] 10/09/24 Transmitted Restrictions 10:53 Date of Service: Oct 09, 2024 Billing Provider: TAMIA DE GUZMAN Common Visit Codes: [id number] INP/OBS CARE (HIGH) TAMIA DE GUZMAN Oct 09, 2024 11:39
[2024-10-09] MEDS: ACCU-CHEK COMFORT CURVE STRIP VI SCH (11:53)
[2024-10-09] MEDS: SODIUM CHLOR 0.9% PF (SALINE LOCK) 10ML VIAL/SYR IV SCH (14:00)
[2024-10-09] MEDS: FUROSEMIDE 100 MG/10ML VIAL IV SCH (17:38)
--- NOTE | 2024-10-09 18:09 | DVHSR ---
APPROVED REPORT EXAM: Two-dimensional and M-mode echocardiogram with Doppler and color Doppler. Blood Pressure: 148/72 mmHg INDICATION CHF exacerbation, AFIB RISK FACTORS Height: 70, Weight: 194 DIMENSIONS LVDd5.8 (3.8-5.7cm)LA (2D)5.4 (1.9-4.0cm)Aortic Root4.0 (2.0-3.7cm) LVDs4.9 (2.5-4.0cm)LA (MM) (1.9-4.0cm)Aortic Cusp Exc0.9 (1.5-2.0cm) EF (%) 30.0 (55-70%)Rt. Atrium5.3 (1.9-4.0cm)Asc. Aorta cm Mitral Valve MitralMitral Stenosis E wave0.98m/sMV Mean GR.mmHg A wavem/sMV Peak GR.101mmHg E/A ratio0.02D MVAcm2 Aortic Valve Aortic ValveAortic Stenosis V10.82m/Murphy Mean GR.8mmHg V21.91m/Murphy Peak GR.15mmHg LVOT Diameter2.0 (1.8-2.4cm)Doppler AVA1.35cm2 Pulmonic Valve V21.19m/s Tricuspid Valve TR Velocity3.52m/s [id number] Other Information Technically limited study due to body habitus and patient position. Patient was sitting straight up during exam due to breathing. Conclusion Four-chamber dilatation was observed Left ventricle was dilated with reduced systolic function. LVEF was 30-35%. Diffuse hypokinesis wit h regional variation of left ventricle was seen. Left ventricular filling pressures were assessed to be elevated. Right ventricle was dilated with reduced systolic function. Both atria were moderately dilated. Aortic valve was not well visualized. Up to moderate aortic stenosis is suspected. There was trace aortic insufficiency. [id number] mitral regurgitation was observed. Moderate tricuspid regurg itation was observed. Pulmonary valve was not well visualized. IVC was dilated. Right ventricular systolic pressure was assessed at 75 mm Hg. Aortic root was dila ashley at 4.0 cm.
[2024-10-09] MEDS: ATORVASTATIN 20 MG TAB PO SCH (21:06)
[2024-10-09] MEDS: GABAPENTIN 300 MG CAP PO SCH (21:06)
[2024-10-09] MEDS: FERROUS SULFATE 325mg EC TAB PO SCH (21:06)
[2024-10-09] MEDS: IPRATROPIUM BROM 0.5 MG/2.5ML INH SOL NEB PRN (21:10)
[2024-10-09] MEDS: ALBUTEROL SULF 2.5 MG/0.5ML(0.5%) NEB SOLN NEB PRN (21:10)
[2024-10-09] MEDS: Sacubitril-Valsartan (Entresto 49-51 mg) PO SCH (21:12)
[2024-10-09] MEDS ORDERED: PATIENTS OWN MEDICATION (Ferrous Sulfate (Gnp Iron) 1 TAB) PO SCH (22:00)
[2024-10-10] VITALS (10 sets, daily range): BP systolic 101–115; BP diastolic 51–77; PULSE 78–112; RESP 17–20; TEMP 97.4–98.2; O2SAT 94–98
[2024-10-10] MEDS: LEVOTHYROXINE SODIUM 112 MCG TAB PO SCH (05:53)
[2024-10-10] MEDS: LEVOTHYROXINE SODIUM 25 MCG TAB PO SCH (05:54)
[2024-10-10] MEDS ORDERED: PATIENTS OWN MEDICATION (Levothyroxine Sodium 1 TAB) PO SCH (07:00)
--- NOTE | 2024-10-10 08:03 | DVHPNRES ---
Progress Note Date Seen: Oct 10, 2024 Resident Creating Document: CEE REA RESIDENT Medical Necessity Reason Pt with a Central, PICC or Fol: No Subjective Review of Systems Steven An is a 79-year-old male with past medical history of atrial fibrillation, diabetes mellitus, hypertension, CHF, CKD 3B, COPD group E, presented to the ER with chief complains of difficulty in breathing. Shortness of breast started on Wednesday, progressively worsened. He reported on baseline he has shortness of breath while climbing stairs, recently it got worse and has been present while walking a 10 ft distance. On 2 L home oxygen. No complains of cough, fever, chest pain, palpitations. PSHx: CABG, 4 stents, cholecystectomy Social history: Quit smoking 10 years ago. Alcohol use 4 oz per day. Reports marijuana use. No recreational drug use. Lives in house with . Home medication: Jardiance, furosemide, metoprolol succinate, levothyroxine, Toujeo, potassium chloride, allopurinol, clopidogrel, pantoprazole, atorvastatin, Entresto Allergic to codeine, iodine, warfarin ROS: Constitutional: Denies weight loss, fever and chills. HEENT: Denies changes in vision and hearing. Respiratory: Shortness of breath Cardiovascular: Denies chest discomfort or palpitations GI: Denies abdominal pain, nausea, vomiting and diarrhea. : Denies dysuria and urinary frequency. Musculoskeletal: Denies myalgias and joint pain Skin: Wound on left buttock. Denies rash and pruritus. Neurological: Denies dizziness, headache, vision or hearing problems He was examined at bedside today. Continues to complain of difficulty in breathing, which has improved in the last 2 days. Complains of itchiness over whole body. He also complained of a wound on the left buttock, present on admission. Reports being compliant on medication. Objective vital signs Vital Sign Date Time Temp Pulse Resp B/P (MAP) Pulse Ox O2 Delivery O2 Flow Rate FiO2 10/10/24 06:10 96 Nasal Cannula 3.0 10/10/24 06:10 32 10/10/24 05:53 115/77 10/10/24 05:00 98.2 112 19 98.2 Total Intake and Output 10/09/24 10/09/24 10/10/24 15:00 23:00 07:00 Intake Total 0 ml 250 ml Balance 0 ml 250 ml medications Current Medications Medications Dose Ordered Sig/Herbert Route Start Time Stop Time Status Last Admin Dose Admin Sodium Chloride 10 ml Q8HR IV 10/09/24 14:00 10/10/24 05:53 10 ML Acetaminophen/ Hydrocodone Bitart 1 tab Q4HP PRN PO 10/09/24 11:00 Ondansetron HCl 4 mg Q4HP PRN IV 10/09/24 11:00 Docusate Sodium 100 mg BIDPRN PRN PO 10/09/24 11:00 Acetaminophen 650 mg Q6HP PRN PO 10/09/24 11:00 Nitroglycerin 0.4 mg Q5MINP PRN SL 10/09/24 11:00 Morphine Sulfate 2 mg Q30M PRN IV 10/09/24 11:00 Furosemide 80 mg BIDD IV 10/09/24 18:00 10/10/24 05:53 80 MG Ipratropium [place] 0.5 mg Q4HPRN PRN NEB 10/09/24 11:15 10/09/24 21:10 0.5 MG Albuterol 2.5 mg Q4HPRN PRN NEB 10/09/24 11:15 10/09/24 21:10 2.5 MG Allopurinol 300 mg DAILY PO 10/10/24 10:00 Clopidogrel Bisulfate 75 mg DAILY PO 10/10/24 10:00 Empaglifozin 10 mg DAILY PO 10/10/24 10:00 Gabapentin 600 mg BID PO 10/09/24 22:00 10/09/24 21:06 600 MG Pantoprazole Sodium 40 mg DAILY PO 10/10/24 10:00 Patient Own Medication 1 tab DAILY PO 10/10/24 10:00 UNV Patient Own Medication 1 tab BID PO 10/09/24 22:00 UNV Patient Own Medication 50 unit DAILY SC 10/10/24 10:00 Patient Own Medication 25 mg DAILY PO 10/10/24 10:00 UNV Patient Own Medication 1 tab BID PO 10/09/24 22:00 Patient Own Medication 1 tab QAM PO 10/10/24 07:00 UNV Diagnostic Test (Pha) 1 strip ACHS 10/09/24 11:30 10/10/24 06:06 1 STRIP Insulin Human Regular HS SC 10/09/24 22:00 10/09/24 21:25 3 UNITS Insulin Human Regular AC SC 10/09/24 11:30 10/09/24 18:29 2 UNITS Dextrose 50 ml UD PRN IV 10/09/24 11:30 Atorvastatin Calcium 10 mg HS PO 10/09/24 22:00 10/09/24 21:06 10 MG Ferrous Sulfate 325 mg BID PO 10/09/24 22:00 10/09/24 21:06 325 MG Metoprolol Succinate 25 mg DAILY PO 10/10/24 10:00 Levothyroxine Sodium 112 mcg QAM PO 10/10/24 07:00 10/10/24 05:53 112 MCG Levothyroxine Sodium 25 mcg QAM PO 10/10/24 07:00 10/10/24 05:54 25 MCG Examination General: Patient alert and oriented in person, place and time. Patient following commands. HEENT: Normocephalic, atraumatic, moist mucous membranes Respiratory/pulmonary: Clear lungs bilaterally, vesicular murmurs present in almost all lung rodriguez, no associated crackles or wheezes. Cardiovascular: Elevated JVP. Bilateral crackles and wheeze on auscultation. Abdomen: Abdomen nondistended, there is no pain to palpation in any of the abdominal quadrants, no palpable masses. Extremities: There is no peripheral edema present at the lower extremities. Peripheral Pulses: 3+ Radial (R). 3+ Radial (L). 3+ Dorsalis pedis (R). 3+ Dorsalis pedis(L) Skin: 2 X3 cm ulcer on left buttock Neurological: Intact cranial nerves with no focal neurologic deficits Other: Small wound on left buttock laboratory and microbiology Laboratory Tests 10/09/24 07:48 Test 10/09/24 07:48 Range/Units Serum Glucose 129 H 74-106 mg/dL Problem List/Assessment/Plan Problem List/Assessment/Plan Acute on chronic congestive heart failure with systolic dysfunction, HFrEF with LVEF 30-35% History of atrial fibrillation Elevated BNP CXR revealed enlarged cardiac silhouette Echo revealed LVEF 30-35%, four-chamber dilatation, moderate aortic stenosis, [id number] Mitral regurgitation, Moderate tricuspid regurgitation was observed. Pulmonary valve was not well visualized. IVC was dilated, right ventricular systolic pressure was assessed at 75 mm Hg, aortic root was dilated at 4.0 cm. Continues empagliflozin. EKG reveals: atrial fibrillation, right bundle branch block, borderline ST segment elevation On 3 L oxygen Continue furosemide 80 mg IV b.i.d. Acute hypoxic respiratory failure due to COPD exacerbation, possible pneumonia, Gram-positive/ Gram-negative Tachycardia Tachypnea 3 L oxygen Med neb CXR shows worsening bilateral airspace disease Influenza, COVID ordered Started IV azithromycin daily Started mg neb treatment Hypothyroidism Continue home levothyroxine Diabetes mellitus Diabetic neuropathy Sliding scale insulin Continue gabapentin Macrocytic anemia Mild thrombocytopenia Uremia Hyperkalemia Hypernatremia Elevated T bilirubin Elevated alkaline phosphatase Ulcer on left gluteal region, on admission Consulted Wound Care DIET: Cardiac DVT PROPHYLAXIS: Lovenox GI PROPHYLAXIS: Protonix CODE STATUS: Goals of care discussed with patient at bedside for more than 35 minutes. DNR DNI DISPOSITION: Med/surge Patient's status and plan discussed with the patient. Case discussed with Dr. Rangel. Plan discussed with: Patient Date of Service: Oct 10, 2024 Billing Provider: JED RANGEL MD Common Visit Codes: [id number] INP/OBS CARE(HIGH) CEE REA RESIDENT Oct 10, 2024 08:03 JED RANGEL MD Oct 15, 2024 20:00
[2024-10-10] MEDS ORDERED: PATIENTS OWN MEDICATION (Atorvastatin Calcium (Lipitor) 1 TAB) PO SCH (10:00)
[2024-10-10] MEDS ORDERED: PATIENTS OWN MEDICATION (Metoprolol Succinate (Metoprolol Succinate Er) 25 MG) PO SCH (10:00)
[2024-10-10] MEDS ORDERED: FERROUS SULFATE 325mg EC TAB PO SCH (10:00)
[2024-10-10] MEDS ORDERED: AZITHROMYCIN 500MG/ 250ML 250 ML IV SCH (10:00)
[2024-10-10 10:42] LABS: Alanine Aminotransferase 10 U/L (7-40); Albumin 3.9 g/dL (3.2-4.8); Anion Gap 9 (5-15); BUN/Creatinine Ratio 30.1 (10.0-20.0); Calcium 9.3 mg/dL (8.7-10.4); Chloride 102 mmol/L (98-107); Magnesium 2.2 mg/dL (1.6-2.6); Potassium 4.1 mmol/L (3.5-5.1); Sodium 144 mmol/L (136-145); Total Protein 6.6 g/dL (5.7-8.2)
[2024-10-10 10:43] LABS: Bilirubin, Total 1.2 mg/dL (0.2-1.0)
[2024-10-10 10:46] LABS: Hematocrit 30.7 % (41.0-53.0); Hemoglobin 10.3 g/dL (13.5-17.5); Mean Corpuscular Hemoglobin 33.6 pg (28.0-32.0); Mean Corpuscular Volume 100.5 fL (80.0-100.0); Nucleated Red Blood Cells % 0.0 %
[2024-10-10 10:55] LABS: Alkaline Phosphatase 128 U/L (46-116); Blood Urea Nitrogen 59 mg/dL (9-23); Carbon Dioxide 33 mmol/L (20-31); Glucose 249 mg/dL (74-106)
[2024-10-10] MEDS: CALCIUM GLUC 1,000mg/50ml-NS 50 ML IV ONE (11:25)
[2024-10-10] MEDS: ALLOPURINOL 100 MG TAB PO SCH (11:26)
[2024-10-10] MEDS: EMPAGLIFLOZIN 10 MG TAB PO SCH (11:26)
[2024-10-10] MEDS: CLOPIDOGREL BISULFATE 75 MG TAB PO SCH (11:27)
[2024-10-10] MEDS: PANTOPRAZOLE 40 MG TAB PO SCH (11:27)
[2024-10-10] MEDS: METOPROLOL SUCCINATE XL 50 MG TAB PO SCH (11:27)
--- NOTE | 2024-10-10 11:52 | DVHINCON2 ---
Date of service: Oct 10, 2024 History of Present Illness HPI Patient is a 79-year-old gentleman who was transferred from [facility] for shortness of breath. He is admitted with acute on chronic systolic heart failure/pulmonary edema. Cardiology is involved for cardiac aspects of care. He is known to have atrial fibrillation and systolic heart failure. Does have baseline CKD. Mentions that shortness of breath was worsened for the past few months. He is known to our practice from outside and before. Home Meds Reported Medications Furosemide (Furosemide) 40 Mg Tab, 1 TAB PO BID 10/09/24 Levothyroxine Sodium (Levothyroxine Sodium) 137 Mcg Tab, 1 TAB PO QAM 10/09/24 Atorvastatin Calcium (Lipitor) 10 Mg Tab, 1 TAB PO DAILY 07/19/23 Insulin Glargine (Toujeo Solostar) 300 Unit/Ml Inj, 50 UNIT SC DAILY 07/19/23 Ferrous Sulfate (Gnp Iron) 325 Mg Tab, 1 TAB PO BID 07/19/23 Pantoprazole Sodium Sesquihydr (Protonix) 40 Mg Tab, 1 TAB PO DAILY 07/19/23 Tramadol Hcl (Tramadol Hcl) 50 Mg Tab, 1 TAB PO BID 07/18/23 Empagliflozin (Jardiance) 10 Mg Tab, 10 MG PO, TAB 07/18/23 Sacubitril-Valsartan (Entresto 49-51 mg) 1 Tab Tab, 1 TAB PO BID 07/18/23 Gabapentin (Gabapentin) 300 Mg Cap, 1 CAP PO BID, #90 CAP 5 Refills 07/18/23 Allopurinol (Allopurinol) 100 Mg Tab, 3 TAB PO DAILY 07/18/23 Metoprolol Succinate (Metoprolol Succinate Er) 25 Mg Tab, 25 MG PO DAILY for 30 Days, MG 07/18/23 Clopidogrel Bisulfate (Plavix) 75 Mg Tab, 1 TAB PO DAILY, #90 TAB 1 Refill 07/18/23 Discontinued Reported Medications Furosemide (Furosemide) 20 Mg Tab, PO UD Take 1 tablet (20 mg) by mouth in the morning, and take 2 tablets (40 mg) by mouth in the evening. 07/19/23 Levothyroxine Sodium (Levothyroxine Sodium) 150 Mcg Tab, 150 MCG PO QAM for 30 Days 07/18/23 Past Medical History Others Past medical history includes coronary artery disease and status post CABG and also status post PCI (CABG was in 1999s and PCI's were in ), overweight/obese, CKD, hypertension, hyperlipidemia, atrial fibrillation (not on anticoagulation at this point, previously bled on Eliquis/Xarelto and patient refuses to take Coumadin and other anticoagulation). Patient has refused referral for Watchman device and has been kept on aspirin as outpatient. Other comorbidities include hypothyroidism, COPD, peripheral vascular disease and status post subclavian stenosis stenting. He usually goes to nephrology (Dr. Thompson) regularly. 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 He is ex smoker. Has repeatedly refused the offer for ICD/cardiac catheterization/watchman device/anticoagulation. Patient Family History: Patient reports no known family medical history. Smoker: Quit Review of Systems Constitutional: Weakness Pulmonary/Respiratory: Dyspnea Cardiovascular: Orthopnea, Paroxysmal Noc. Dyspnea All Other Systems Fourteen point review of system was performed. Relevant findings as per above and as per HPI. Otherwise negative. H&P Exam Vital Signs Vital Signs Date Time Temp Pulse Resp B/P (MAP) Pulse Ox O2 Delivery O2 Flow Rate FiO2 10/10/24 11:27 105 110/66 10/10/24 08:00 20 94 Nasal Cannula* 2 28 10/10/24 05:00 98.2 98.2 General Appeara: Well developed Head Exam: Normal inspection Eye Exam: bilateral eye PERRL Pulmonary/Respiratory: Rales Cardiovascular/Chest: Normal inspection, Edema, Systolic murmur, Irregularly irregular Peripheral Pulses: 2+ carotid (R), 2+ carotid (L), 2+ femoral (R), 2+ femoral (L), 2+ dorsalis pedis (R), 2+ dorsalis pedis (L), 2+ Radial (R), 2+ Radial (L) Abdominal Exam: Normal bowel sounds, Soft Neuro/Mental St: Alert, Oriented Appearance: Appropriate appearance Eye contact/ Speech: Cooperative Labs/Xrays Labs Test 10/10/24 09:54 10/10/24 06:02 10/09/24 13:55 10/09/24 07:48 Range/Units White Blood Count 7.0 4.4-10.8 10^3/uL Red Blood Count 3.06 L 4.5-5.90 10^6/uL Hemoglobin 10.3 L 13.5-17.5 g/dL Hematocrit 30.7 L 41.0-53.0 % Mean Corpuscular Volume 100.5 H 80.0-100.0 fL Mean Corpuscular Hemoglobin 33.6 H 28.0-32.0 pg Mean Corpuscular Hemoglobin Concent 33.4 32.0-36.0 g/dL Red Cell Distribution Width 16.0 H 11.8-14.3 % Platelet Count 117 L 140-450 10^3/uL Mean Platelet Volume 9.9 6.9-10.8 fL Neutrophils (%) (Auto) 80.9 H 37.0-80.0 % Lymphocytes (%) (Auto) 8.4 L 10.0-50.0 % Monocytes (%) (Auto) 8.0 0.0-12.0 % Eosinophils (%) (Auto) 2.1 0.0-7.0 % Basophils (%) (Auto) 0.6 0.0-2.0 % Neutrophils # (Auto) 5.7 1.6-8.6 10 ^3/uL Lymphocytes # (Auto) 0.6 0.4-5.4 10 ^3/uL Monocytes # (Auto) 0.6 0-1.3 10 ^3/uL Eosinophils # (Auto) 0.2 0-0.8 10 ^3/uL Basophils # (Auto) 0 0-0.2 10 ^3/uL Nucleated Red Blood Cells 0.0 % Sodium Level 144 # 136-145 mmol/L Potassium Level 4.1 3.5-5.1 mmol/L Chloride Level 102 98-107 mmol/L Carbon Dioxide Level 33 H 20-31 mmol/L Anion Gap 9 5-15 Blood Urea Nitrogen 59 H 9-23 mg/dL Creatinine 1.96 H 0.700-1.30 mg/dL Glomerular Filtration Rate Calc 34 >90 mL/min BUN/Creatinine Ratio 30.1 H 10.0-20.0 Serum Glucose 249 #H 74-106 mg/dL Calcium Level 9.3 8.7-10.4 mg/dL Magnesium Level 2.2 1.6-2.6 mg/dL Total Bilirubin 1.2 H 0.2-1.0 mg/dL Aspartate Amino Transferase (AST) 18 13-40 U/L Alanine Aminotransferase (ALT) 10 7-40 U/L Alkaline Phosphatase 128 H 46-116 U/L Total Protein 6.6 5.7-8.2 g/dL Albumin 3.9 3.2-4.8 g/dL POC Glucose 126 H 70-106 mg/dl Troponin I High Sensitivity 29 </=54 ng/L B-Type Natriuretic Peptide 1586.28 0-100 pg/mL Assessment/Plan Plan Patient is a 79-year-old gentleman who was transferred from [facility] for shortness of breath. He is admitted with acute on chronic systolic heart failure/pulmonary edema. Cardiology is involved for cardiac aspects of care. He is known to have atrial fibrillation and systolic heart failure. Does have baseline CKD. Mentions that shortness of breath was worsened for the past few months. He is known to our practice from outside and before. Does have history of coronary artery disease and is status post CABG. As outpatient he was found to have decreased ejection fraction compared to 2021 and the plan was to have cardiac catheterization after nephrology clearance. Patient has always been concerned about worsening kidney function and has refused any imaging evaluation. Not in acute distress. No JVD. Mucosa is pink and wet. There is no carotid bruit. There is no goiter. Not using accessory muscles of breathing. Lung examination revealed scattered rhonchi and crackles in the lower lungs. Cardiac: Irregular, systolic murmur in the apex is heard. Abdomen is soft. Extremities reveal 2+ edema bilaterally. Past medical history includes coronary artery disease and status post CABG and also status post PCI (CABG was in and PCI's were in ), overwei ght/obese, CKD, hypertension, hyperlipidemia, atrial fibrillation (not on anticoagulation at this point, previously bled on Eliquis/Xarelto and patient refuses to take Coumadin and other anticoagulation). Patient has refused referral for Watchman device and has been kept on aspirin as outpatient. Other comorbidities include hypothyroidism, COPD, peripheral vascular disease and st atus post subclavian stenosis stenting. He usually goes to nephrology (Dr. Thompson) regularly. 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 He is ex smoker. Has repeatedly refused the offer for ICD/cardiac catheterization/watchman device/anticoagulation. Echocardiogram of January 2022 (performed at [facility] [place]) revealed ejection fraction of 40 to 45% Echocardiogram of June 23, 2023 (performed in [place]) revealed atrial fibrillation, ejection fraction of 20 to 25%, four-chamber dilatation and right ventricular systolic pressure of 40 mmHg. Echocardiogram of July 2023 revealed four-chamber dilatation, concentric left ventricular hypertrophy, ejection fraction of 30%, moderate mitral regurgitation, mild tricuspid regurgitation and right ventricular systolic pressure of 48 mmHg. Echocardiogram of September 28, 2024 (performed in the office) revealed four-chamber dilatation: Mild concentric left ventricular hypertrophy, ejection fraction of 30-35%, increased filling pressures of left ventricle was seen, aortic sclerosis with no stenosis was observed, moderate MR/TR, aortic root of 3.8 cm and right ventricular systolic pressure of 70 mm Hg. Hemoglobin: 11.4 -10.3 Platelet: 137 - 117 Troponin (high sensitive): 27 - 24 - 27 - 28 - 31 - 29 BNP: 1586.28 Creatinine: 2.28 - 1.96 Potassium: 5.3 - 4.1 Chest x-ray revealed: IMPRESSION: 1. Worsening bilateral airspace disease. 2. Cardiomegaly. EKG revealed: a-fib with RVR, IVCD Telemetry reveals atrial fibrillation with RVR Echocardiogram reported: Four-chamber dilatation was observed. Left ventricle was dilated with reduced systolic function. LVEF was 30-35%. Diffuse hypokinesis with regional variation of left ventricle was seen. Left ventricular filling pressures were assessed to be elevated. Right ventricle was dilated with reduced systolic function. Both atria were moderately dilated. Aortic valve was not well visualized. Up to moderate aortic stenosis is suspected. There was trace aortic insufficiency. Hpju-[id number]-[id number] mitral regurgitation was observed. Moderate tricuspid regurgitation was observed. Pulmonary valve was not well visualized. IVC was dilated. Right ventricular systolic pressure was assessed at 75 mm Hg. 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 Patient is a 79-year-old gentleman who presented with worsening shortness of breath. Presentation is in favor of acute on chronic systolic heart failure. Acute coronary syndrome is not considered. Patient does have CKD which could have contributed to the clinical picture also. It is of note that the patient as outpatient has refused the offer for repeat ischemic workup/cardiac cathete rization as he fears worsening kidney function. He also has refused the offer for ICD repeatedly. He also has repeatedly refused the offer for anticoagulation/Watchman device. Acute on chronic systolic heart failure KIRAN on CKD Peripheral vascular disease Atrial fibrillation with RVR Refusing full anticoagulation Hypertension Hyperlipidemia Peripheral vascular disease and status post subclavian stenosis/stenting Coronary artery disease, status post CABG Ischemic Cardiomyopathy Cardiac suggestion for management: Manage on telemetry IV Diuresis Follow-up electrolytes and kidney function test and correct abnormalities. IV Amiodarone for now Consider nephrology evaluation Further evaluation and management depends on the above and clinical course Thank you for consultation A total of 75 minutes was spent reviewing the patient record, examining the patient, making a diagnostic and therapeutic plan, discussing this plan with medical personnel, following up on diagnostic studies and following the patient for clinical stability excluding any and all procedures. At least 50% of this time was spent in direct, [id number] contact. Thank you for allowing me to participate in this patient's care. Further recommendations will depend on patient's clinical course. Please do not hesitate to contact me if you have any questions or concerns. This medical document was created using electronic medical record system with [employer] computerized dictation system. Although this document has been carefully reviewed, there may still be some phonetic and typographical errors. These areas are purely typographical due to the imperfection of the software programs, and do not reflect any compromise in the patient's medical care. Plan discussed with: Patient, Other (nurse) RACHELE VERGARA MD Oct 10, 2024 11:52
[2024-10-10] MEDS: AMIODARONE 360mg/200mL PREMIX 200 ML IV SCH (14:17)
[2024-10-10 19:12] LABS: COVID19 ANTIGEN SOFIA FIA NEGATIVE (NEGATIVE)
[2024-10-10] MEDS: DOXYCYCLINE 100MG/100ML 100 ML IV SCH (20:00)
[2024-10-11] VITALS (11 sets, daily range): BP systolic 96–120; BP diastolic 56–66; PULSE 60–80; RESP 18–21; TEMP 97.1–98.4; O2SAT 92–100
--- NOTE | 2024-10-11 06:17 | DVHPN2 ---
Progress Note - Dictate Date Seen: Oct 11, 2024 Medical Necessity Reason Pt with a Central, PICC or Fol: No vital signs Vital Sign Date Time Temp Pulse Resp B/P (MAP) Pulse Ox O2 Delivery O2 Flow Rate FiO2 10/11/24 05:40 97 Nasal Cannula* 2 28 10/11/24 05:00 97.9 78 18 114/61 (78) 97.9 Total Intake and Output 10/10/24 10/10/24 10/11/24 15:00 23:00 07:00 Intake Total 868 ml 2034.64 ml 833.32 ml Output Total 350 ml Balance 868 ml 1684.64 ml 833.32 ml medications Current Medications Medications Dose Ordered Sig/Herbert Route Start Time Stop Time Status Last Admin Dose Admin Sodium Chloride 10 ml Q8HR IV 10/09/24 14:00 10/10/24 14:00 10 ML Ondansetron HCl 4 mg Q4HP PRN IV 10/09/24 11:00 Docusate Sodium 100 mg BIDPRN PRN PO 10/09/24 11:00 Acetaminophen 650 mg Q6HP PRN PO 10/09/24 11:00 Furosemide 80 mg BIDD IV 10/09/24 18:00 10/10/24 17:51 80 MG Ipratropium Zap 0.5 mg Q4HPRN PRN NEB 10/09/24 11:15 10/09/24 21:10 0.5 MG Albuterol 2.5 mg Q4HPRN PRN NEB 10/09/24 11:15 10/09/24 21:10 2.5 MG Allopurinol 300 mg DAILY PO 10/10/24 10:00 10/10/24 11:26 300 MG Clopidogrel Bisulfate 75 mg DAILY PO 10/10/24 10:00 10/10/24 11:27 75 MG Empaglifozin 10 mg DAILY PO 10/10/24 10:00 10/10/24 11:26 10 MG Gabapentin 600 mg BID PO 10/09/24 22:00 10/10/24 20:49 600 MG Pantoprazole Sodium 40 mg DAILY PO 10/10/24 10:00 10/10/24 11:27 40 MG Patient Own Medication 1 tab DAILY PO 10/10/24 10:00 UNV Patient Own Medication 1 tab BID PO 10/09/24 22:00 UNV Patient Own Medication 50 unit DAILY SC 10/10/24 10:00 Patient Own Medication 25 mg DAILY PO 10/10/24 10:00 UNV Patient Own Medication 1 tab BID PO 10/09/24 22:00 Patient Own Medication 1 tab QAM PO 10/10/24 07:00 UNV Diagnostic Test (Pha) 1 strip ACHS 10/09/24 11:30 10/10/24 20:49 1 STRIP Insulin Human Regular HS SC 10/09/24 22:00 10/10/24 20:58 3 UNITS Insulin Human Regular AC SC 10/09/24 11:30 10/10/24 12:09 3 UNITS Dextrose 50 ml UD PRN IV 10/09/24 11:30 Atorvastatin Calcium 10 mg HS PO 10/09/24 22:00 10/10/24 20:48 10 MG Ferrous Sulfate 325 mg BID PO 10/09/24 22:00 10/10/24 20:48 325 MG Metoprolol Succinate 25 mg DAILY PO 10/10/24 10:00 10/10/24 11:27 25 MG Levothyroxine Sodium 112 mcg QAM PO 10/10/24 07:00 10/10/24 05:53 112 MCG Levothyroxine Sodium 25 mcg QAM PO 10/10/24 07:00 10/10/24 05:54 25 MCG Doxycycline Hyclate 100 ml @ 50 mls/hr Q12H IV 10/10/24 20:00 laboratory and microbiology Laboratory Tests 10/10/24 09:54 Test 10/10/24 09:54 Range/Units Serum Glucose 249 #H 74-106 mg/dL Assessment/Plan Patient is a 79-year-old gentleman who was transferred from [facility] for shortness of breath. He is admitted with acute on chronic systolic heart failure/pulmonary edema. Cardiology is involved for cardiac aspects of care. He is known to have atrial fibrillation and systolic heart failure. Does have baseline CKD. Mentions that shortness of breath was worsened for the past few months. He is known to our practice from outside and before. Does have history of coronary artery disease and is status post CABG. As outpatient he was found to have decreased ejection fraction compared to 2021 and the plan was to have cardiac catheterization after nephrology clearance. Patient has always been concerned about worsening kidney function and has refused any imaging evaluation. Not in acute distress. No JVD. Mucosa is pink and wet. There is no carotid bruit. There is no goiter. Not using accessory muscles of breathing. Lung examination revealed scattered rhonchi and crackles in the lower lungs. Cardiac: Irregular, systolic murmur in the apex is heard. Abdomen is soft. Extremities reveal 2+ edema bilaterally. Past medical history includes coronary artery disease and status post CABG and also status post PCI (CABG was in and PCI's were in ), overweight/obese, CKD, hypertension, hyperlipidemia, atrial fibrillation (not on anticoagulation at this point, previously bled on Eliquis/Xarelto and patient refuses to take Coumadin and other anticoagulation). Patient has refused referral for Watchman device and has been kept on aspirin as outpatient. Other comorbidities include hypothyroidism, COPD, peripheral vascular disease and status post subclavian stenosis stenting. He usually goes to nephrology (Dr. Thompson) regularly. 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 He is ex smoker. Has repeatedly refused the offer for ICD/cardiac catheterization/watchman device/anticoagulation. Echocardiogram of January 2022 (performed at [facility]) revealed ejection fraction of 40 to 45% Echocardiogram of June 23, 2023 (performed in [facility]) revealed atrial fibrillation, ejection fraction of 20 to 25%, four-chamber dilatation and right ventricular systolic pressure of 40 mmHg. Echocardiogram of July 2023 revealed four-chamber dilatation, concentric left ventricular hypertrophy, ejection fraction of 30%, moderate mitral regurgitation, mild tricuspid regurgitation and right ventricular systolic pressure of 48 mmHg. Echocardiogram of September 28, 2024 (performed in the office) revealed four-chamber dilatation: Mild concentric left ventricular hypertrophy, ejection fraction of 30-35%, increased filling pressures of left ventricle was seen, aortic sclerosis with no stenosis was observed, moderate MR/TR, aortic root of 3.8 cm and right ventricular systolic pressure of 70 mm Hg. Hemoglobin: 11.4 -10.3 Platelet: 137 - 117 Troponin (high sensitive): 27 - 24 - 27 - 28 - 31 - 29 BNP: 1586.28 Creatinine: 2.28 - 1.96 Potassium: 5.3 - 4.1 Chest x-ray revealed: IMPRESSION: 1. Worsening bilateral airspace disease. 2. Cardiomegaly. EKG revealed: a-fib with RVR, IVCD Telemetry reveals atrial fibrillation with RVR later with MVR Echocardiogram reported: Four-chamber dilatation was observed. Left ventricle was dilated with reduced systolic function. LVEF was 30-35%. Diffuse hypokinesis with regional variation of left ventricle was seen. Left ventricular filling pressures were assessed to be elevated. Right ventricle was dilated with reduced systolic function. Both atria were moderately dilated. Aortic valve was not well visualized. Up to moderate aortic stenosis is suspected. There was trace aortic insufficiency. [id number] mitral regurgitation was observed. Moderate tricuspid regurgitation was observed. Pulmonary valve was not well visualized. IVC was dilated. Right ventricular systolic pressure was assessed at 75 mm Hg. 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 Patient is a 79-year-old gentleman who presented with worsening shortness of breath. Presentation is in favor of acute on chronic systolic heart failure. Acute coronary syndrome is not considered. Patient does have CKD which could have contributed to the clinical picture also. It is of note that the patient as outpatient has refused the offer for repeat ischemic workup/cardiac catheterization as he fears worsening kidney function. He also has refused the offer for ICD repeatedly. He also has repeatedly refused the offer for anticoagulation/Watchman device. Acute on chronic systolic heart failure KIRAN on CKD Peripheral vascular disease Atrial fibrillation with RVR Refusing full anticoagulation Hypertension Hyperlipidemia Peripheral vascular disease and status post subclavian stenosis/stenting Coronary artery disease, status post CABG Ischemic Cardiomyopathy Cardiac suggestion for management: Manage on telemetry IV Diuresis Follow-up electrolytes and kidney function test and correct abnormalities. IV Amiodarone for now Further evaluation and management depends on the above and clinical course A total of 55 minutes was spent reviewing the patient record, examining the patient, making a diagnostic and therapeutic plan, discussing this plan with medical personnel, following up on diagnostic studies and following the patient for clinical stability excluding any and all procedures. At least 50% of this time was spent in direct, [id number] contact. Thank you for allowing me to participate in this patient's care. Further recommendations will depend on patient's clinical course. Please do not hesitate to contact me if you have any questions or concerns. This medical document was created using electronic medical record system with [employer] dictation system. Although this document has been carefully reviewed, there may still be some phonetic and typographical errors. These areas are purely typographical due to the imperfection of the software programs, and do not reflect any compromise in the patient's medical care. Plan discussed with: Patient, Other (nurse) RACHELE VERGARA MD Oct 11, 2024 06:17
[2024-10-11 07:04] LABS: Nucleated Red Blood Cells % 0.0 %
[2024-10-11 07:08] LABS: Hematocrit 30.1 % (41.0-53.0); Mean Corpuscular Hemoglobin 33.9 pg (28.0-32.0); Mean Corpuscular Volume 99.3 fL (80.0-100.0)
--- NOTE | 2024-10-11 07:15 | DVHPNRES ---
Progress Note Date Seen: Oct 11, 2024 Resident Creating Document: CEE REA RESIDENT Medical Necessity Reason Pt with a Central, PICC or Fol: No Subjective Review of Systems Steven An is a 79-year-old male with past medical history of atrial fibrillation, diabetes mellitus, hypertension, CHF, CKD 3B, COPD group E, presented to the ER with chief complains of difficulty in breathing. Shortness of breast started on Wednesday, progressively worsened. He reported on baseline he has shortness of breath while climbing stairs, recently it got worse and has been present while walking a 10 ft distance. On 2 L home oxygen. No complains o f cough, fever, chest pain, palpitations. PSHx: CABG, 4 stents, cholecystectomy Social history: Quit smoking 10 years ago. Alcohol use 4 oz per day. Reports marijuana use. No recreational drug use. Lives in house with . Home medication: Jardiance, furosemide, metoprolol succinate, levothyroxine, Toujeo, potassium chloride, allopurinol, clopidogrel, pantoprazole, atorvast atin, Entresto Allergic to codeine, iodine, warfarin ROS: Constitutional: Denies weight loss, fever and chills. HEENT: Denies changes in vision and hearing. Respiratory: Shortness of breath Cardiovascular: Denies chest discomfort or palpitations GI: Denies abdominal pain, nausea, vomiting and diarrhea. : Denies dysuria and urinary frequency. Musculoskeletal: Denies myalgias and joint pain Skin: Wound on left buttock. Denies rash and pruritus. Neurological: Denies dizziness, headache, vision or hearing problems He was examined at bedside today. Reports improvement in symptoms. Cardiology on board. Wound consult placed for a wound on the left buttock, present on admission. Objective vital signs Vital Sign Date Time Temp Pulse Resp B/P (MAP) Pulse Ox O2 Delivery O2 Flow Rate FiO2 10/11/24 06:07 128/78 10/11/24 05:40 97 Nasal Cannula* 2 28 10/11/24 05:00 97.9 78 18 97.9 Total Intake and Output 10/10/24 10/10/24 10/11/24 15:00 23:00 07:00 Intake Total 868 ml 2034.64 ml 915.96 ml Output Total 350 ml Balance 868 ml 1684.64 ml 915.96 ml medications Current Medications Medications Dose Ordered Sig/Herbert Route Start Time Stop Time Status Last Admin Dose Admin Sodium Chloride 10 ml Q8HR IV 10/09/24 14:00 10/11/24 06:08 10 ML Ondansetron HCl 4 mg Q4HP PRN IV 10/09/24 11:00 Docusate Sodium 100 mg BIDPRN PRN PO 10/09/24 11:00 Acetaminophen 650 mg Q6HP PRN PO 10/09/24 11:00 Furosemide 80 mg BIDD IV 10/09/24 18:00 10/11/24 06:07 80 MG Ipratropium [place] 0.5 mg Q4HPRN PRN NEB 10/09/24 11:15 10/09/24 21:10 0.5 MG Albuterol 2.5 mg Q4HPRN PRN NEB 10/09/24 11:15 10/09/24 21:10 2.5 MG Allopurinol 300 mg DAILY PO 10/10/24 10:00 10/10/24 11:26 300 MG Clopidogrel Bisulfate 75 mg DAILY PO 10/10/24 10:00 10/10/24 11:27 75 MG Empaglifozin 10 mg DAILY PO 10/10/24 10:00 10/10/24 11:26 10 MG Gabapentin 600 mg BID PO 10/09/24 22:00 10/10/24 20:49 600 MG Pantoprazole Sodium 40 mg DAILY PO 10/10/24 10:00 10/10/24 11:27 40 MG Patient Own Medication 1 tab DAILY PO 10/10/24 10:00 UNV Patient Own Medication 1 tab BID PO 10/09/24 22:00 UNV Patient Own Medication 50 unit DAILY SC 10/10/24 10:00 Patient Own Medication 25 mg DAILY PO 10/10/24 10:00 UNV Patient Own Medication 1 tab BID PO 10/09/24 22:00 Patient Own Medication 1 tab QAM PO 10/10/24 07:00 UNV Diagnostic Test (Pha) 1 strip ACHS 10/09/24 11:30 10/11/24 06:51 1 STRIP Insulin Human Regular HS SC 10/09/24 22:00 10/10/24 20:58 3 UNITS Insulin Human Regular AC SC 10/09/24 11:30 10/11/24 06:51 2 UNITS Dextrose 50 ml UD PRN IV 10/09/24 11:30 Atorvastatin Calcium 10 mg HS PO 10/09/24 22:00 10/10/24 20:48 10 MG Ferrous Sulfate 325 mg BID PO 10/09/24 22:00 10/10/24 20:48 325 MG Metoprolol Succinate 25 mg DAILY PO 10/10/24 10:00 10/10/24 11:27 25 MG Levothyroxine Sodium 112 mcg QAM PO 10/10/24 07:00 10/11/24 06:07 112 MCG Levothyroxine Sodium 25 mcg QAM PO 10/10/24 07:00 10/11/24 06:07 25 MCG Doxycycline Hyclate 100 ml @ 50 mls/hr Q12H IV 10/10/24 20:00 Examination General: Patient alert and oriented in person, place and time. Patient following commands. HEENT: Normocephalic, atraumatic, moist mucous membranes Respiratory/pulmonary: Clear lungs bilaterally, vesicular murmurs present in almost all lung rodriguez, no associated crackles or wheezes. Cardiovascular: Elevated JVP. Bilateral crackles and wheeze on auscultation. Abdomen: Abdomen nondistended, there is no pain to palpation in any of the abdominal quadrants, no palpable masses. Extremities: There is no peripheral edema present at the lower extremities. Peripheral Pulses: 3+ Radial (R). 3+ Radial (L). 3+ Dorsalis pedis (R). 3+ Dorsalis pedis(L) Neurological: Intact cranial nerves with no focal neurologic deficits Other: Small wound on left buttock, 0.5x0.5cm open partial thickness wound with dark red,non-blanchable gasper wound ,no drainage/odor noted laboratory and microbiology Test 10/11/24 05:54 Range/Units Serum Glucose Pending Problem List/Assessment/Plan Problem List/Assessment/Plan Acute on chronic congestive heart failure with systolic dysfunction, HFrEF with LVEF 30-35% History of atrial fibrillation Elevated BNP CXR revealed enlarged cardiac silhouette Echo revealed LVEF 30-35%, four-chamber dilatation, moderate aortic stenosis, [id number] Mitral regurgitation, Moderate tricuspid regurgitation was observed. Pulmonary valve was not well visualized. IVC was dilated, right ventricular systolic pressure was assessed at 75 mm Hg, aortic root was dilated at 4.0 cm. Continues empagliflozin. EKG reveals: atrial fibrillation, right bundle branch block, borderline ST segment elevation On 3 L oxygen Continue furosemide IV Started acetazolamide 500 mg IV Neurology on board Acute hypoxic respiratory failure due to COPD exacerbation, possible pneumonia, Gram-positive/ Gram-negative Tachycardia Tachypnea 3 L oxygen Med neb CXR shows worsening bilateral airspace disease Influenza, COVID ordered Started IV azithromycin daily Started mg neb treatment Hypothyroidism Continue home levothyroxine Diabetes mellitus Diabetic neuropathy Sliding scale insulin Continue gabapentin Macrocytic anemia Mild thrombocytopenia Uremia Hyperkalemia Hypernatremia Elevated T bilirubin Elevated alkaline phosphatase Ulcer on left gluteal region, on admission Consulted Wound Care KIRAN on CKD Peripheral vascular disease Hypertension Hyperlipidemia Coronary artery disease, status post CABG Ischemic Cardiomyopathy Peripheral vascular disease and status post subclavian stenosis/stenting Refusing full anticoagulation DIET: Cardiac GI PROPHYLAXIS: Protonix CODE STATUS: Goals of care discussed with patient at bedside for more than 25 minutes. DNR DNI DISPOSITION: Med/surge Patient's status and plan discussed with the patient. Case discussed with Dr. Rangel. Plan discussed with: Patient Date of Service: Oct 11, 2024 Billing Provider: JED RANGEL MD Common Visit Codes: [id number] INP/OBS CARE(HIGH) CEE REA RESIDENT Oct 11, 2024 07:15 JED RANGEL MD Oct 15, 2024 20:23
[2024-10-11 07:17] LABS: Hemoglobin 10.3 g/dL (13.5-17.5)
[2024-10-11 07:42] LABS: Alanine Aminotransferase 13 U/L (7-40); Albumin 3.9 g/dL (3.2-4.8); Calcium 9.5 mg/dL (8.7-10.4); Chloride 100 mmol/L (98-107)
[2024-10-11 07:43] LABS: Anion Gap 8 (5-15); BUN/Creatinine Ratio 28.9 (10.0-20.0); Bilirubin, Total 0.8 mg/dL (0.2-1.0); Potassium 4.5 mmol/L (3.5-5.1); Sodium 141 mmol/L (136-145); Total Protein 6.6 g/dL (5.7-8.2)
[2024-10-11 07:49] LABS: Alkaline Phosphatase 131 U/L (46-116); Blood Urea Nitrogen 61 mg/dL (9-23); Carbon Dioxide 33 mmol/L (20-31); Glucose 121 mg/dL (74-106)
[2024-10-11] MEDS: acetaZOLAMIDE SODIUM 500 MG VL IV SCH (10:00)
[2024-10-11 11:10] LABS: Iron 13.0 ug/dL (65-175)
[2024-10-11 11:38] LABS: Total Iron Binding Capacity 243.0 ug/dL (250-425)
[2024-10-11] MEDS: levoFLOXacin 500 MG TAB PO ONE (17:12)
[2024-10-11] MEDS: FUROSEMIDE 40 MG/4 ML VIAL IV SCH (20:30)
[2024-10-11] MEDS: DOXYCYCLINE 100 MG TAB/CAP PO SCH (22:26)
[2024-10-12] VITALS (14 sets, daily range): BP systolic 112–134; BP diastolic 54–75; PULSE 63–101; RESP 17–22; TEMP 97.1–98.1; O2SAT 90–100
--- NOTE | 2024-10-12 07:22 | DVHPN2 ---
Progress Note - Dictate Date Seen: Oct 12, 2024 Medical Necessity Reason Pt with a Central, PICC or Fol: No vital signs Vital Sign Date Time Temp Pulse Resp B/P (MAP) Pulse Ox O2 Delivery O2 Flow Rate FiO2 10/12/24 06:00 109/47 10/12/24 04:56 97.3 66 19 93 97.3 10/11/24 20:00 Nasal Cannula* 2 28 Total Intake and Output 10/11/24 10/11/24 10/12/24 15:00 23:00 07:00 Intake Total 750 ml 466.58 ml Output Total 600 ml 500 ml Balance 150 ml -33.42 ml medications Current Medications Medications Dose Ordered Sig/Herbert Route Start Time Stop Time Status Last Admin Dose Admin Sodium Chloride 10 ml Q8HR IV 10/09/24 14:00 10/12/24 06:10 10 ML Ondansetron HCl 4 mg Q4HP PRN IV 10/09/24 11:00 Acetaminophen 650 mg Q6HP PRN PO 10/09/24 11:00 Ipratropium [place] 0.5 mg Q4HPRN PRN NEB 10/09/24 11:15 10/09/24 21:10 0.5 MG Albuterol 2.5 mg Q4HPRN PRN NEB 10/09/24 11:15 10/09/24 21:10 2.5 MG Allopurinol 300 mg DAILY PO 10/10/24 10:00 10/11/24 09:49 300 MG Clopidogrel Bisulfate 75 mg DAILY PO 10/10/24 10:00 10/11/24 09:48 75 MG Empaglifozin 10 mg DAILY PO 10/10/24 10:00 10/11/24 09:48 10 MG Gabapentin 600 mg BID PO 10/09/24 22:00 10/11/24 22:26 600 MG Pantoprazole Sodium 40 mg DAILY PO 10/10/24 10:00 10/11/24 09:48 40 MG Patient Own Medication 1 tab DAILY PO 10/10/24 10:00 UNV Patient Own Medication 1 tab BID PO 10/09/24 22:00 UNV Patient Own Medication 50 unit DAILY SC 10/10/24 10:00 Patient Own Medication 25 mg DAILY PO 10/10/24 10:00 UNV Patient Own Medication 1 tab QAM PO 10/10/24 07:00 UNV Diagnostic Test (Pha) 1 strip ACHS 10/09/24 11:30 10/12/24 06:32 1 STRIP Insulin Human Regular HS SC 10/09/24 22:00 10/11/24 22:25 2 UNITS Insulin Human Regular AC SC 10/09/24 11:30 10/11/24 11:30 3 UNITS Dextrose 50 ml UD PRN IV 10/09/24 11:30 Atorvastatin Calcium 10 mg HS PO 10/09/24 22:00 10/11/24 22:26 10 MG Ferrous Sulfate 325 mg BID PO 10/09/24 22:00 10/11/24 22:26 325 MG Metoprolol Succinate 25 mg DAILY PO 10/10/24 10:00 10/10/24 11:27 25 MG Levothyroxine Sodium 112 mcg QAM PO 10/10/24 07:00 10/12/24 06:08 112 MCG Levothyroxine Sodium 25 mcg QAM PO 10/10/24 07:00 10/12/24 06:09 25 MCG Furosemide 40 mg BIDD IV 10/11/24 18:00 Acetazolamide Sodium 500 mg DAILY IV 10/11/24 09:00 10/11/24 17:17 500 MG Doxycycline Monohydrate 100 mg Q12HR PO 10/11/24 22:00 10/11/24 22:26 100 MG Levofloxacin 250 mg DAILY@1700 PO 10/12/24 17:00 Prednisone 40 mg DAILY PO 10/13/24 10:00 laboratory and microbiology Laboratory Tests 10/11/24 05:54 Test 10/11/24 05:54 Range/Units Serum Glucose 121 #H 74-106 mg/dL Assessment/Plan Patient is a 79-year-old gentleman who was transferred from [facility] for shortness of breath. He is admitted with acute on chronic systolic heart failure/pulmonary edema. Cardiology is involved for cardiac aspects of care. He is known to have atrial fibrillation and systolic heart failure. Does have baseline CKD. Mentions that shortness of breath was worsened for the past few months. He is known to our practice from outside and before. Does have history of coronary artery disease and is status post CABG. As outpatient he was found to have decreased ejection fraction compared to 2021 and the plan was to have cardiac catheterization after nephrology clearance. Patient has always been concerned about worsening kidney function and has refused any imaging evaluation. Not in acute distress. No JVD. Mucosa is pink and wet. There is no carotid bruit. There is no goiter. Not using accessory muscles of breathing. Lung examination revealed scattered rhonchi and crackles in the lower lungs. Cardiac: Irregular, systolic murmur in the apex is heard. Abdomen is soft. Extremities reveal 2+ edema bilaterally. Past medical history includes coronary artery disease and status post CABG and also status post PCI (CABG was in and PCI's were in ), overweight/obese, CKD, hypertension, hyperlipidemia, atrial fibrillation (not on anticoagulation at this point, previously bled on Eliquis/Xarelto and patient refuses to take Coumadin and other anticoagulation). Patient has refused referral for Watchman device and has been kept on aspirin as outpatient. Other comorbidities include hypothyroidism, COPD, peripheral vascular disease and status post subclavian stenosis stenting. He usually goes to nephrology (Dr. Thompson) regularly. 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 He is ex smoker. Has repeatedly refused the offer for ICD/cardiac catheterization/watchman device/anticoagulation. Echocardiogram of January 2022 (performed at [facility]) revealed ejection fraction of 40 to 45% Echocardiogram of June 23, 2023 (performed in [facility]) revealed atrial fibrillation, ejection fraction of 20 to 25%, four-chamber dilatation and right ventricular systolic pressure of 40 mmHg. Echocardiogram of July 2023 revealed four-chamber dilatation, concentric left ventricular hypertrophy, ejection fraction of 30%, moderate mitral regurgitation, mild tricuspid regurgitation and right ventricular systolic pressure of 48 mmHg. Echocardiogram of September 28, 2024 (performed in the office) revealed four-chamber dilatation: Mild concentric left ventricular hypertrophy, ejection fraction of 30-35%, increased filling pressures of left ventricle was seen, aortic sclerosis with no stenosis was observed, moderate MR/TR, aortic root of 3.8 cm and right ventricular systolic pressure of 70 mm Hg. Hemoglobin: 11.4 -10.3 - 10.3 Platelet: 137 - 117 - 125 Troponin (high sensitive): - 24 - 27 - 28 - 31 - 29 BNP: 1586.28 Creatinine: 2.28 - 1.96 - 2.11 Potassium: 5.3 - 4.1 - 4.5 M.2 - 2.1 Chest x-ray revealed: IMPRESSION: 1. Worsening bilateral airspace disease. 2. Cardiomegaly. EKG revealed: a-fib with RVR, IVCD Telemetry reveals atrial fibrillation with RVR later with MVR Echocardiogram reported: Four-chamber dilatation was observed. Left ventricle was dilated with reduced systolic function. LVEF was 30-35%. Diffuse hypokinesis with regional variation of left ventricle was seen. Left ventricular filling pressures were assessed to be elevated. Right ventricle was dilated with reduced systolic function. Both atria were moderately dilated. Aortic valve was not well visualized. Up to moderate aortic stenosis is suspected. There was trace aortic insufficiency. [id number] mitral regurgitation was observed. Moderate tricuspid regurgitation was observed. Pulmonary valve was not well visualized. IVC was dilated. Right ventricular systolic pressure was assessed at 75 mm Hg. 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 Patient is a 79-year-old gentleman who presented with worsening shortness of breath. Presentation is in favor of acute on chronic systolic heart failure. Acute coronary syndrome is not considered. Patient does have CKD which could have contributed to the clinical picture also. It is of note that the patient as outpatient has refused the offer for repeat ischemic workup/cardiac catheterization as he fears worsening kidney function. He also has refused the offer for ICD repeatedly. He also has repeatedly refused the offer for anticoagulation/Watchman device. Acute on chronic systolic heart failure KIRAN on CKD Peripheral vascular disease Atrial fibrillation with RVR Refusing full anticoagulation Hypertension Hyperlipidemia Peripheral vascular disease and status post subclavian stenosis/stenting Coronary artery disease, status post CABG Ischemic Cardiomyopathy Cardiac suggestion for management: Manage on telemetry IV Diuresis Follow-up electrolytes and kidney function test and correct abnormalities. Stop IV Amiodarone Oral Amiodarone: 200 mg HS Cardiac de [place], is stable Further evaluation and management depends on the above and clinical course A total of 55 minutes was spent reviewing the patient record, examining the patient, making a diagnostic and therapeutic plan, discussing this plan with medical personnel, following up on diagnostic studies and following the patient for clinical stability excluding any and all procedures. At least 50% of this time was spent in direct, [id number] contact. Thank you for allowing me to participate in this patient's care. Further recommendations will depend on patient's clinical course. Please do not hesitate to contact me if you have any questions or concerns. This medical document was created using electronic medical record system with [employer] dictation system. Although this document has been carefully reviewed, there may still be some phonetic and typographical errors. These areas are purely typographical due to the imperfection of the software programs, and do not reflect any compromise in the patient's medical care. Dietary Evaluation Review Comments: CCHO-75 Renal diet with 50g protein restriction Expected Outcomes/Goals: monitor PO intake and uremic syndrome Plan discussed with: Patient, Other (nurse) RACHELE VERGARA MD Oct 12, 2024 07:22
[2024-10-12] MEDS ORDERED: ALBUTEROL SULF 2.5 MG/0.5ML(0.5%) NEB SOLN NEB SCH (07:45)
[2024-10-12] MEDS: predniSONE 20 MG TAB PO ONE (08:04)
[2024-10-12] MEDS ORDERED: levoFLOXacin 500 MG TAB PO SCH (10:00)
[2024-10-12] MEDS: IPRATROPIUM BROM 0.5 MG/2.5ML INH SOL NEB PRN (11:00)
[2024-10-12] MEDS: ALBUTEROL SULF 2.5 MG/0.5ML(0.5%) NEB SOLN NEB SCH (11:00)
[2024-10-12 12:03] LABS: Hematocrit 32.0 % (41.0-53.0); Hemoglobin 10.7 g/dL (13.5-17.5); Mean Corpuscular Hemoglobin 33.4 pg (28.0-32.0); Mean Corpuscular Volume 99.5 fL (80.0-100.0); Nucleated Red Blood Cells % 0.1 %
[2024-10-12 12:10] LABS: Chloride 101 mmol/L (98-107); Potassium 4.3 mmol/L (3.5-5.1); Sodium 140 mmol/L (136-145)
[2024-10-12 12:11] LABS: Anion Gap 7 (5-15); Calcium 9.5 mg/dL (8.7-10.4)
[2024-10-12 12:16] LABS: BUN/Creatinine Ratio 28.9 (10.0-20.0)
[2024-10-12 12:17] LABS: Blood Urea Nitrogen 65 mg/dL (9-23); Carbon Dioxide 32 mmol/L (20-31); Glucose 205 mg/dL (74-106)
--- NOTE | 2024-10-12 13:31 | DVHPNRES ---
Progress Note Date Seen: Oct 12, 2024 Resident Creating Document: CEE REA RESIDENT Medical Necessity Reason Pt with a Central, PICC or Fol: No Subjective Review of Systems Steven An is a 79-year-old male with past medical history of atrial fibrillation, diabetes mellitus, hypertension, CHF, CKD 3B, COPD group E, presented to the ER with chief complains of difficulty in breathing. Shortness of breast started on Wednesday, progressively worsened. He reported on baseline he has shortness of breath while climbing stairs, recently it got worse and has been present while walking a 10 ft distance. On 2 L home oxygen. No complains of cough, fever, chest pain, palpitations. PSHx: CABG, 4 stents, cholecystectomy Social history: Quit smoking 10 years ago. Alcohol use 4 oz per day. Reports marijuana use. No recreational drug use. Lives in house with . Home medication: Jardiance, furosemide, metoprolol succinate, levothyroxine, Toujeo, potassium chloride, allopurinol, clopidogrel, pantoprazole, atorvastatin, Entresto Allergic to codeine, iodine, warfarin ROS: Constitutional: Denies weight loss, fever and chills. HEENT: Denies changes in vision and hearing. Respiratory: Shortness of breath Cardiovascular: Denies chest discomfort or palpitations GI: Denies abdominal pain, nausea, vomiting and diarrhea. : Denies dysuria and urinary frequency. Musculoskeletal: Denies myalgias and joint pain Skin: Wound on left buttock. Denies rash and pruritus. Neurological: Denies dizziness, headache, vision or hearing problems He was examined at bedside today. Reports improvement in symptoms. Cardiology on board. We will continue monitoring and managing. Objective vital signs Vital Sign Date Time Temp Pulse Resp B/P (MAP) Pulse Ox O2 Delivery O2 Flow Rate FiO2 10/12/24 12:57 134/75 10/12/24 12:57 96 10/12/24 12:49 98.0 19 90 98.0 10/12/24 11:20 2.0 28 10/12/24 11:00 Nasal Cannula Total Intake and Output 10/11/24 10/11/24 10/12/24 15:00 23:00 07:00 Intake Total 750 ml 466.58 ml Output Total 600 ml 500 ml Balance 150 ml -33.42 ml medications Current Medications Medications Dose Ordered Sig/Herbert Route Start Time Stop Time Status Last Admin Dose Admin Sodium Chloride 10 ml Q8HR IV 10/09/24 14:00 10/12/24 06:10 10 ML Ondansetron HCl 4 mg Q4HP PRN IV 10/09/24 11:00 Acetaminophen 650 mg Q6HP PRN PO 10/09/24 11:00 Allopurinol 300 mg DAILY PO 10/10/24 10:00 10/12/24 08:04 300 MG Clopidogrel Bisulfate 75 mg DAILY PO 10/10/24 10:00 10/12/24 08:05 75 MG Empaglifozin 10 mg DAILY PO 10/10/24 10:00 10/12/24 08:03 10 MG Gabapentin 600 mg BID PO 10/09/24 22:00 10/12/24 08:05 600 MG Pantoprazole Sodium 40 mg DAILY PO 10/10/24 10:00 10/12/24 08:05 40 MG Patient Own Medication 1 tab DAILY PO 10/10/24 10:00 UNV Patient Own Medication 1 tab BID PO 10/09/24 22:00 UNV Patient Own Medication 50 unit DAILY SC 10/10/24 10:00 Patient Own Medication 25 mg DAILY PO 10/10/24 10:00 UNV Patient Own Medication 1 tab QAM PO 10/10/24 07:00 UNV Diagnostic Test (Pha) 1 strip ACHS 10/09/24 11:30 10/12/24 11:30 1 STRIP Insulin Human Regular HS SC 10/09/24 22:00 10/11/24 22:25 2 UNITS Insulin Human Regular AC SC 10/09/24 11:30 10/12/24 11:30 6 UNITS Dextrose 50 ml UD PRN IV 10/09/24 11:30 Atorvastatin Calcium 10 mg HS PO 10/09/24 22:00 10/11/24 22:26 10 MG Ferrous Sulfate 325 mg BID PO 10/09/24 22:00 10/12/24 08:04 325 MG Metoprolol Succinate 25 mg DAILY PO 10/10/24 10:00 10/12/24 12:57 25 MG Levothyroxine Sodium 112 mcg QAM PO 10/10/24 07:00 10/12/24 06:08 112 MCG Levothyroxine Sodium 25 mcg QAM PO 10/10/24 07:00 10/12/24 06:09 25 MCG Furosemide 40 mg BIDD IV 10/11/24 18:00 Acetazolamide Sodium 500 mg DAILY IV 10/11/24 09:00 10/12/24 12:57 500 MG Doxycycline Monohydrate 100 mg Q12HR PO 10/11/24 22:00 10/12/24 08:04 100 MG Levofloxacin 250 mg DAILY@1700 PO 10/12/24 17:00 Prednisone 40 mg DAILY PO 10/13/24 10:00 Ipratropium [place] 0[address] [facility] 10/12/24 07:45 10/12/24 11:00 0.5 MG Albuterol 2.5 mg Q6HR NEB 10/12/24 12:00 10/12/24 11:00 2.5 MG Examination General: Patient alert and oriented in person, place and time. Patient following commands. HEENT: Normocephalic, atraumatic, moist mucous membranes Respiratory/pulmonary: Clear lungs bilaterally, vesicular murmurs present in almost all lung rodriguez, no associated crackles or wheezes. Cardiovascular: Bilateral crackles and wheeze on auscultation. Abdomen: Abdomen nondistended, there is no pain to palpation in any of the abdominal quadrants, no palpable masses. Extremities: Grade 1 peripheral edema, improving Peripheral Pulses: 3+ Radial (R). 3+ Radial (L). 3+ Dorsalis pedis (R). 3+ Dorsalis pedis(L) Neurological: Intact cranial nerves with no focal neurologic deficits Other: Small wound on left buttock, 0.5x0.5cm open partial thickness wound with dark red,non-blanchable gasper wound ,no drainage/odor noted laboratory and microbiology Laboratory Tests 10/12/24 11:30 Test 10/12/24 11:30 Range/Units Serum Glucose 205 H 74-106 mg/dL Problem List/Assessment/Plan Problem List/Assessment/Plan Acute on chronic congestive heart failure with systolic dysfunction, HFrEF with LVEF 30-35% History of atrial fibrillation Elevated BNP CXR revealed enlarged cardiac silhouette Echo revealed LVEF 30-35%, four-chamber dilatation, moderate aortic stenosis, [id number] Mitral regurgitation, Moderate tricuspid regurgitation was observed. Pulmonary valve was not well visualized. IVC was dilated, right ventricular systolic pressure was assessed at 75 mm Hg, aortic root was dilated at 4.0 cm. Continues empagliflozin. EKG reveals: atrial fibrillation, right bundle branch block, borderline ST segment elevation On 3 L oxygen Continue furosemide IV and acetazolamide 500 mg IV Cardiology on board Acute hypoxic respiratory failure due to COPD exacerbation, possible pneumonia, Gram-positive/ Gram-negative Tachycardia Tachypnea 3 L oxygen Med neb CXR shows worsening bilateral airspace disease Influenza, COVID ordered Continue IV azithromycin daily Continue mg neb treatment Hypothyroidism Continue home levothyroxine Diabetes mellitus Diabetic neuropathy Sliding scale insulin Continue gabapentin Macrocytic anemia Mild thrombocytopenia Uremia Hyperkalemia Hypernatremia Elevated T bilirubin Elevated alkaline phosphatase Ulcer on left gluteal region, on admission Consulted Wound Care KIRAN on CKD Peripheral vascular disease Hypertension Hyperlipidemia Coronary artery disease, status post CABG Ischemic Cardiomyopathy Peripheral vascular disease and status post subclavian stenosis/stenting Refusing full anticoagulation DIET: Cardiac GI PROPHYLAXIS: Protonix CODE STATUS: Goals of care discussed with patient at bedside for more than 25 minutes. DNR DNI DISPOSITION: Med/surge Patient's status and plan discussed with the patient. Case discussed with Dr. Rangel. Plan discussed with: Patient My Orders My Orders Orders - CEE REA RESIDENT Procedure Category Date Status Time Communication Order ORDERS 10/12/24 Transmitted 11:43 Dietary Evaluation Review Comments: CCHO-75 Renal diet with 50g protein restriction Expected Outcomes/Goals: monitor PO intake and uremic syndrome Date of Service: Oct 12, 2024 Billing Provider: JED RANGEL MD Common Visit Codes: [id number] INP/OBS CARE(HIGH) CEE REA Oct 12, 2024 13:31 JED RANGEL MD Oct 15, 2024 20:39
[2024-10-12] MEDS: levoFLOXacin 250 MG TAB PO SCH (17:25)
[2024-10-13] VITALS (16 sets, daily range): BP systolic 106–128; BP diastolic 52–73; PULSE 64–89; RESP 17–24; TEMP 97–98.1; O2SAT 95–100
--- NOTE | 2024-10-13 06:34 | DVHPN2 ---
Progress Note - Dictate Date Seen: Oct 13, 2024 Medical Necessity Reason Pt with a Central, PICC or Fol: No vital signs Vital Sign Date Time Temp Pulse Resp B/P (MAP) Pulse Ox O2 Delivery O2 Flow Rate FiO2 10/13/24 05:39 125/66 10/13/24 04:50 97.0 83 18 99 97.0 10/13/24 00:36 Nasal Cannula* 2 28 Total Intake and Output 10/12/24 10/12/24 10/13/24 15:00 23:00 07:00 Intake Total 300 ml 700 ml Output Total 700 ml Balance -400 ml 700 ml medications Current Medications Medications Dose Ordered Sig/Herbert Route Start Time Stop Time Status Last Admin Dose Admin Sodium Chloride 10 ml Q8HR IV 10/09/24 14:00 10/13/24 05:36 10 ML Ondansetron HCl 4 mg Q4HP PRN IV 10/09/24 11:00 Acetaminophen 650 mg Q6HP PRN PO 10/09/24 11:00 Allopurinol 300 mg DAILY PO 10/10/24 10:00 10/12/24 08:04 300 MG Clopidogrel Bisulfate 75 mg DAILY PO 10/10/24 10:00 10/12/24 08:05 75 MG Empaglifozin 10 mg DAILY PO 10/10/24 10:00 10/12/24 08:03 10 MG Gabapentin 600 mg BID PO 10/09/24 22:00 10/12/24 22:13 600 MG Pantoprazole Sodium 40 mg DAILY PO 10/10/24 10:00 10/12/24 08:05 40 MG Patient Own Medication 1 tab DAILY PO 10/10/24 10:00 UNV Patient Own Medication 1 tab BID PO 10/09/24 22:00 UNV Patient Own Medication 50 unit DAILY SC 10/10/24 10:00 Patient Own Medication 25 mg DAILY PO 10/10/24 10:00 UNV Patient Own Medication 1 tab QAM PO 10/10/24 07:00 UNV Diagnostic Test (Pha) 1 strip ACHS 10/09/24 11:30 10/12/24 22:17 1 STRIP Insulin Human Regular HS SC 10/09/24 22:00 10/12/24 22:17 6 UNITS Insulin Human Regular AC SC 10/09/24 11:30 10/12/24 17:00 9 UNITS Dextrose 50 ml UD PRN IV 10/09/24 11:30 Atorvastatin Calcium 10 mg HS PO 10/09/24 22:00 10/12/24 22:13 10 MG Ferrous Sulfate 325 mg BID PO 10/09/24 22:00 10/12/24 22:13 325 MG Metoprolol Succinate 25 mg DAILY PO 10/10/24 10:00 10/12/24 12:57 25 MG Levothyroxine Sodium 112 mcg QAM PO 10/10/24 07:00 10/12/24 06:08 112 MCG Levothyroxine Sodium 25 mcg QAM PO 10/10/24 07:00 10/12/24 06:09 25 MCG Furosemide 40 mg BIDD IV 10/11/24 18:00 10/13/24 05:39 40 MG Acetazolamide Sodium 500 mg DAILY IV 10/11/24 09:00 10/12/24 12:57 500 MG Doxycycline Monohydrate 100 mg Q12HR PO 10/11/24 22:00 10/12/24 22:13 100 MG Levofloxacin 250 mg DAILY@1700 PO 10/12/24 17:00 10/12/24 17:25 250 MG Prednisone 40 mg DAILY PO 10/13/24 10:00 Ipratropium [place] 0.5 mg Q4HPRN PRN NEB 10/12/24 07:45 10/12/24 11:00 0.5 MG Albuterol 2.5 mg Q6HR NEB 10/12/24 12:00 10/13/24 00:36 2.5 MG Amiodarone HCl 200 mg DAILY PO 10/13/24 22:00 laboratory and microbiology Laboratory Tests 10/12/24 11:30 Test 10/12/24 11:30 Range/Units Serum Glucose 205 H 74-106 mg/dL Assessment/Plan Patient is a 79-year-old gentleman who was transferred from [facility] for shortness of breath. He is admitted with acute on chronic systolic heart failure/pulmonary edema. Cardiology is involved for cardiac aspects of care. He is known to have atrial fibrillation and systolic heart failure. Does have baseline CKD. Mentions that shortness of breath was worsened for the past few months. He is known to our practice from outside and before. Does have history of coronary artery disease and is status post CABG. As outpatient he was found to have decreased ejection fraction compared to 2021 and the plan was to have cardiac catheterization after nephrology clearance. Patient has always been concerned about worsening kidney function and has refused any imaging evaluation. Not in acute distress. No JVD. Mucosa is pink and wet. There is no carotid bruit. There is no goiter. Not using accessory muscles of breathing. Lung examination revealed scattered rhonchi and crackles in the lower lungs. Cardiac: Irregular, systolic murmur in the apex is heard. Abdomen is soft. Extremities reveal 2+ edema bilaterally. Past medical history includes coronary artery disease and status post CABG and also status post PCI (CABG was in and PCI's were in ), overweight/obese, CKD, hypertension, hyperlipidemia, atrial fibrillation (not on anticoagulation at this point, previously bled on Eliquis/Xarelto and patient refuses to take Coumadin and other anticoagulation). Patient has refused referral for Watchman device and has been kept on aspirin as outpatient. Other comorbidities include hypothyroidism, COPD, peripheral vascular disease and status post subclavian stenosis stenting. He usually goes to nephrology (Dr. Thompson) regularly. 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 He is ex smoker. Has repeatedly refused the offer for ICD/cardiac catheterization/watchman device/anticoagulation. Echocardiogram of January 2022 (performed at [facility]) revealed ejection fraction of 40 to 45% Echocardiogram of June 23, 2023 (performed in [facility]) revealed atrial fibrillation, ejection fraction of 20 to 25%, four-chamber dilatation and right ventricular systolic pressure of 40 mmHg. Echocardiogram of July 2023 revealed four-chamber dilatation, concentric left ventricular hypertrophy, ejection fraction of 30%, moderate mitral regurgitation, mild tricuspid regurgitation and right ventricular systolic pressure of 48 mmHg. Echocardiogram of September 28, 2024 (performed in the office) revealed four-chamber dilatation: Mild concentric left ventricular hypertrophy, ejection fraction of 30-35%, increased filling pressures of left ventricle was seen, aortic sclerosis with no stenosis was observed, moderate MR/TR, aortic root of 3.8 cm and right ventricular systolic pressure of 70 mm Hg. Hemoglobin: 11.4 -10.3 - 10.3 Platelet: 137 - 117 - 125 Troponin (high sensitive): - 24 - 27 - 28 - 31 - 29 BNP: 1586.28 Creatinine: 2.28 - 1.96 - 2.11 - 2.28 Potassium: 5.3 - 4.1 - 4.5 - 3.6 M.2 - 2.1 Chest x-ray revealed: IMPRESSION: 1. Worsening bilateral airspace disease. 2. Cardiomegaly. EKG revealed: a-fib with RVR, IVCD Telemetry reveals atrial fibrillation with RVR later with MVR Echocardiogram reported: Four-chamber dilatation was observed. Left ventricle was dilated with reduced systolic function. LVEF was 30-35%. Diffuse hypokinesis with regional variation of left ventricle was seen. Left ventricular filling pressures were assessed to be elevated. Right ventricle was dilated with reduced systolic function. Both atria were moderately dilated. Aortic valve was not well visualized. Up to moderate aortic stenosis is suspected. There was trace aortic insufficiency. [id number] mitral regurgitation was observed. Moderate tricuspid regurgitation was observed. Pulmonary valve was not well visualized. IVC was dilated. Right ventricular systolic pressure was assessed at 75 mm Hg. 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 Patient is a 79-year-old gentleman who presented with worsening shortness of breath. Presentation is in favor of acute on chronic systolic heart failure. Acute coronary syndrome is not considered. Patient does have CKD which could have contributed to the clinical picture also. It is of note that the patient as outpatient has refused the offer for repeat ischemic workup/cardiac catheterization as he fears worsening kidney function. He also has refused the offer for ICD repeatedly. He also has repeatedly refused the offer for anticoagulation/Watchman device. Acute on chronic systolic heart failure KIRAN on CKD Peripheral vascular disease Atrial fibrillation with RVR Refusing full anticoagulation Hypertension Hyperlipidemia Peripheral vascular disease and status post subclavian stenosis/stenting Coronary artery disease, status post CABG Ischemic Cardiomyopathy Cardiac suggestion for management: Manage on telemetry IV Diuresis Follow-up electrolytes and kidney function test and correct abnormalities. Stop IV Amiodarone Oral Amiodarone: 200 mg HS Cardiac de [place], is stable Further evaluation and management depends on the above and clinical course A total of 55 minutes was spent reviewing the patient record, examining the patient, making a diagnostic and therapeutic plan, discussing this plan with medical personnel, following up on diagnostic studies and following the patient for clinical stability excluding any and all procedures. At least 50% of this time was spent in direct, [id number] contact. Thank you for allowing me to participate in this patient's care. Further recommendations will depend on patient's clinical course. Please do not hesitate to contact me if you have any questions or concerns. This medical document was created using electronic medical record system with idio computerized dictation system. Although this document has been carefully reviewed, there may still be some phonetic and typographical errors. These areas are purely typographical due to the imperfection of the software programs, and do not reflect any compromise in the patient's medical care. Dietary Evaluation Review Comments: CCHO-75 Renal diet with 50g protein restriction Expected Outcomes/Goals: monitor PO intake and uremic syndrome Plan discussed with: Patient (Patient and Primary RN ) BRUCE MOCKP Oct 13, 2024 06:34
[2024-10-13] MEDS: INSULIN LISPRO (HUMAN) 100 UNITS/ML ML SC SCH ×2 (07:00)
[2024-10-13 07:42] LABS: Chloride 102 mmol/L (98-107); Potassium 3.6 mmol/L (3.5-5.1); Sodium 139 mmol/L (136-145)
[2024-10-13 07:43] LABS: Anion Gap 10 (5-15); Carbon Dioxide 27 mmol/L (20-31)
[2024-10-13 07:44] LABS: Calcium 9.6 mg/dL (8.7-10.4)
[2024-10-13 07:49] LABS: BUN/Creatinine Ratio 26.8 (10.0-20.0)
[2024-10-13 07:54] LABS: Blood Urea Nitrogen 61 mg/dL (9-23); Glucose 183 mg/dL (74-106)
[2024-10-13] MEDS: predniSONE 20 MG TAB PO SCH (09:40)
--- NOTE | 2024-10-13 13:01 | DVHPNRES ---
Progress Note Date Seen: Oct 13, 2024 Resident Creating Document: CEE REA RESIDENT Medical Necessity Reason Pt with a Central, PICC or Fol: No Subjective Review of Systems Steven An is a 79-year-old male with past medical history of atrial fibrillation, diabetes mellitus, hypertension, CHF, CKD 3B, COPD group E, presented to the ER with chief complains of difficulty in breathing. Shortness of breast started on Wednesday, progressively worsened. He reported on baseline he has shortness of breath while climbing stairs, recently it got worse and has been present while walking a 10 ft distance. On 2 L home oxygen. No complains of cough, fever, chest pain, palpitations. PSHx: CABG, 4 stents, cholecystectomy Social history: Quit smoking 10 years ago. Alcohol use 4 oz per day. Reports marijuana use. No recreational drug use. Lives in house with . Home medication: Jardiance, furosemide, metoprolol succinate, levothyroxine, [place]je[place], potassium chloride, allopurinol, clopidogrel, pantoprazole, atorvastatin, Entresto Allergic to codeine, iodine, warfarin ROS: Constitutional: Denies weight loss, fever and chills. HEENT: Denies changes in vision and hearing. Respiratory: Shortness of breath Cardiovascular: Denies chest discomfort or palpitations GI: Denies abdominal pain, nausea, vomiting and diarrhea. : Denies dysuria and urinary frequency. Musculoskeletal: Denies myalgias and joint pain Skin: Wound on left buttock. Denies rash and pruritus. Neurological: Denies dizziness, headache, vision or hearing problems He was examined at bedside today. Reports improvement in symptoms. No new complaints today. Cardiology on board. Strict I&O in place, balance 300, we will continue diuresing. Objective vital signs Vital Sign Date Time Temp Pulse Resp B/P (MAP) Pulse Ox O2 Delivery O2 Flow Rate FiO2 10/13/24 12:11 70 20 100 10/13/24 09:43 126/64 10/13/24 09:00 97.6 97.6 10/13/24 06:46 Nasal Cannula 2.0 10/13/24 06:46 28 Total Intake and Output 10/12/24 10/12/24 10/13/24 15:00 23:00 07:00 Intake Total 300 ml 700 ml Output Total 700 ml Balance -400 ml 700 ml medications Current Medications Medications Dose Ordered Sig/Herbert Route Start Time Stop Time Status Last Admin Dose Admin Sodium Chloride 10 ml Q8HR IV 10/09/24 14:00 10/13/24 05:36 10 ML Ondansetron HCl 4 mg Q4HP PRN IV 10/09/24 11:00 Acetaminophen 650 mg Q6HP PRN PO 10/09/24 11:00 Allopurinol 300 mg DAILY PO 10/10/24 10:00 10/13/24 09:40 300 MG Clopidogrel Bisulfate 75 mg DAILY PO 10/10/24 10:00 10/13/24 09:41 75 MG Empaglifozin 10 mg DAILY PO 10/10/24 10:00 10/13/24 09:41 10 MG Gabapentin 600 mg BID PO 10/09/24 22:00 10/13/24 09:43 600 MG Pantoprazole Sodium 40 mg DAILY PO 10/10/24 10:00 10/13/24 09:41 40 MG Patient Own Medication 1 tab DAILY PO 10/10/24 10:00 UNV Patient Own Medication 1 tab BID PO 10/09/24 22:00 UNV Patient Own Medication 50 unit DAILY SC 10/10/24 10:00 Patient Own Medication 25 mg DAILY PO 10/10/24 10:00 UNV Patient Own Medication 1 tab QAM PO 10/10/24 07:00 UNV Diagnostic Test (Pha) 1 strip ACHS 10/09/24 11:30 10/13/24 11:12 1 STRIP Dextrose 50 ml UD PRN IV 10/09/24 11:30 Ferrous Sulfate 325 mg BID PO 10/09/24 22:00 10/13/24 09:41 325 MG Metoprolol Succinate 25 mg DAILY PO 10/10/24 10:00 10/13/24 09:40 25 MG Levothyroxine Sodium 112 mcg QAM PO 10/10/24 07:00 10/13/24 06:32 112 MCG Levothyroxine Sodium 25 mcg QAM PO 10/10/24 07:00 10/13/24 06:32 25 MCG Acetazolamide Sodium 500 mg DAILY IV 10/11/24 09:00 10/13/24 09:43 500 MG Doxycycline Monohydrate 100 mg Q12HR PO 10/11/24 22:00 10/13/24 09:40 100 MG Levofloxacin 250 mg DAILY@1700 PO 10/12/24 17:00 10/12/24 17:25 250 MG Prednisone 40 mg DAILY PO 10/13/24 10:00 10/14/24 10:00 10/13/24 09:40 40 MG Ipratropium [place] 0.5 mg Q4HPRN PRN [facility] 10/12/24 07:45 10/13/24 12:08 0.5 MG Albuterol 2.5 mg Q6HR NEB 10/12/24 12:00 10/13/24 12:08 2.5 MG Amiodarone HCl 200 mg DAILY PO 10/13/24 22:00 Atorvastatin Calcium 80 mg HS PO 10/13/24 22:00 Insulin Human Lispro AC SC 10/13/24 07:00 10/13/24 11:23 2 UNITS Insulin Human Lispro 7 units AC SC 10/13/24 07:00 Prednisone 40 mg DAILY PO 10/14/24 10:00 10/14/24 11:00 UNV Furosemide 80 mg BIDD IV 10/13/24 18:00 UNV Examination General: Patient alert and oriented in person, place and time. Patient following commands. HEENT: Normocephalic, atraumatic, moist mucous membranes Respiratory/pulmonary: Clear lungs bilaterally, vesicular murmurs present in almost all lung rodriguez, no associated crackles or wheezes. Cardiovascular: Bilateral crackles and wheeze on auscultation. Abdomen: Abdomen nondistended, there is no pain to palpation in any of the abdominal quadrants, no palpable masses. Extremities: Grade 1 peripheral edema, improving Peripheral Pulses: 3+ Radial (R). 3+ Radial (L). 3+ Dorsalis pedis (R). 3+ Dorsalis pedis(L) Neurological: Intact cranial nerves with no focal neurologic deficits Other: Small wound on left buttock, 0.5x0.5cm open partial thickness wound with dark red,non-blanchable gasper wound ,no drainage/odor noted, wound dressing in place laboratory and microbiology Laboratory Tests 10/13/24 06:25 10/12/24 11:30 Test 10/13/24 06:25 Range/Units Serum Glucose 183 H 74-106 mg/dL Problem List/Assessment/Plan Problem List/Assessment/Plan Acute on chronic congestive heart failure with systolic dysfunction, HFrEF with LVEF 30-35% History of atrial fibrillation Elevated BNP CXR revealed enlarged cardiac silhouette Echo revealed LVEF 30-35%, four-chamber dilatation, moderate aortic stenosis, [id number] Mitral regurgitation, Moderate tricuspid regurgitation was observed. Pulmonary valve was not well visualized. IVC was dilated, right ventricular systolic pressure was assessed at 75 mm Hg, aortic root was dilated at 4.0 cm. Continues empagliflozin. EKG reveals: atrial fibrillation, right bundle branch block, borderline ST segment elevation On 3 L oxygen Continue increased furosemide IV and acetazolamide 500 mg IV Strict I&O on place, balance 300 Cardiology on board Acute hypoxic respiratory failure due to COPD exacerbation, possible pneumonia, Gram-positive/ Gram-negative Tachycardia Tachypnea 3 L oxygen Med neb CXR shows worsening bilateral airspace disease Influenza, COVID ordered Continue IV azithromycin daily Continue mg neb treatment Hypothyroidism Continue home levothyroxine Diabetes mellitus Diabetic neuropathy Sliding scale insulin Continue gabapentin Macrocytic anemia Mild thrombocytopenia Uremia Hyperkalemia Hypernatremia Elevated T bilirubin Elevated alkaline phosphatase Ulcer on left gluteal region, on admission Consulted Wound Care KIRAN on CKD Peripheral vascular disease Hypertension Hyperlipidemia Coronary artery disease, status post CABG Ischemic Cardiomyopathy Peripheral vascular disease and status post subclavian stenosis/stenting Refusing full anticoagulation DIET: Cardiac GI PROPHYLAXIS: Protonix CODE STATUS: Goals of care discussed with patient at bedside for more than 25 minutes. DNR DNI DISPOSITION: Med/surge Patient's status and plan discussed with the patient. Case discussed with Dr. Rangel. Plan discussed with: Patient Dietary Evaluation Review Comments: CCHO-75 Renal diet with 50g protein restriction Expected Outcomes/Goals: monitor PO intake and uremic syndrome Date of Service: Oct 13, 2024 Billing Provider: JED RANGEL MD Common Visit Codes: [id number] INP/OBS CARE(HIGH) CEE REA RESIDENT Oct 13, 2024 13:01 JED RANGEL MD Oct 15, 2024 21:06
[2024-10-13] MEDS: FUROSEMIDE 40 MG/4 ML VIAL IV SCH (17:32)
[2024-10-13] MEDS: AMIODARONE HCL 200 MG TAB PO SCH (21:51)
[2024-10-13] MEDS: ATORVASTATIN 20 MG TAB PO SCH (21:52)
[2024-10-14] VITALS (13 sets, daily range): BP systolic 110–124; BP diastolic 47–72; PULSE 71–83; RESP 16–25; TEMP 97.5–98; O2SAT 97–100
--- NOTE | 2024-10-14 06:30 | DVHPN2 ---
Progress Note - Dictate Date Seen: Oct 14, 2024 Medical Necessity Reason Pt with a Central, PICC or Fol: No vital signs Vital Sign Date Time Temp Pulse Resp B/P (MAP) Pulse Ox O2 Delivery O2 Flow Rate FiO2 10/14/24 05:34 72 22 100 10/14/24 05:26 Nasal Cannula 2.0 10/14/24 05:26 28 10/13/24 21:00 97.3 115/53 (73) 97.3 Total Intake and Output 10/13/24 10/13/24 10/14/24 15:00 23:00 07:00 Intake Total 1000 ml Output Total 2300 ml Balance -1300 ml medications Current Medications Medications Dose Ordered Sig/Herbert Route Start Time Stop Time Status Last Admin Dose Admin Sodium Chloride 10 ml Q8HR IV 10/09/24 14:00 10/14/24 05:41 10 ML Ondansetron HCl 4 mg Q4HP PRN IV 10/09/24 11:00 Acetaminophen 650 mg Q6HP PRN PO 10/09/24 11:00 Allopurinol 300 mg DAILY PO 10/10/24 10:00 10/13/24 09:40 300 MG Clopidogrel Bisulfate 75 mg DAILY PO 10/10/24 10:00 10/13/24 09:41 75 MG Empaglifozin 10 mg DAILY PO 10/10/24 10:00 10/13/24 09:41 10 MG Gabapentin 600 mg BID PO 10/09/24 22:00 10/13/24 21:52 600 MG Pantoprazole Sodium 40 mg DAILY PO 10/10/24 10:00 10/13/24 09:41 40 MG Patient Own Medication 1 tab DAILY PO 10/10/24 10:00 UNV Patient Own Medication 1 tab BID PO 10/09/24 22:00 UNV Patient Own Medication 50 unit DAILY SC 10/10/24 10:00 Patient Own Medication 25 mg DAILY PO 10/10/24 10:00 UNV Patient Own Medication 1 tab QAM PO 10/10/24 07:00 UNV Diagnostic Test (Pha) 1 strip ACHS 10/09/24 11:30 10/13/24 22:02 1 STRIP Dextrose 50 ml UD PRN IV 10/09/24 11:30 Ferrous Sulfate 325 mg BID PO 10/09/24 22:00 10/13/24 21:52 325 MG Metoprolol Succinate 25 mg DAILY PO 10/10/24 10:00 10/13/24 09:40 25 MG Levothyroxine Sodium 112 mcg QAM PO 10/10/24 07:00 10/13/24 06:32 112 MCG Levothyroxine Sodium 25 mcg QAM PO 10/10/24 07:00 10/13/24 06:32 25 MCG Acetazolamide Sodium 500 mg DAILY IV 10/11/24 09:00 10/13/24 09:43 500 MG Doxycycline Monohydrate 100 mg Q12HR PO 10/11/24 22:00 10/13/24 21:52 100 MG Levofloxacin 250 mg DAILY@1700 PO 10/12/24 17:00 10/13/24 17:11 250 MG Prednisone 40 mg DAILY PO 10/13/24 10:00 10/14/24 10:00 10/13/24 09:40 40 MG Ipratropium [place] 0.5 mg Q4HPRN PRN NEB 10/12/24 07:45 10/14/24 00:16 0.5 MG Albuterol 2.5 mg Q6HR NEB 10/12/24 12:00 10/14/24 05:26 2.5 MG Amiodarone HCl 200 mg DAILY PO 10/13/24 22:00 10/13/24 21:51 200 MG Atorvastatin Calcium 80 mg HS PO 10/13/24 22:00 10/13/24 21:52 80 MG Insulin Human Lispro AC ME 10/13/24 07:00 10/13/24 17:10 2 UNITS Insulin Human Lispro 7 units AC ME 10/13/24 07:00 10/13/24 17:10 7 UNITS Prednisone 40 mg DAILY PO 10/14/24 10:00 10/14/24 11:00 Furosemide 80 mg DAILY IV 10/14/24 10:00 laboratory and microbiology Laboratory Tests 10/13/24 06:25 10/12/24 11:30 Test 10/13/24 06:25 Range/Units Serum Glucose 183 H 74-106 mg/dL Assessment/Plan Patient is a 79-year-old gentleman who was transferred from [facility] for shortness of breath. He is admitted with acute on chronic systolic heart failure/pulmonary edema. Cardiology is involved for cardiac aspects of care. He is known to have atrial fibrillation and systolic heart failure. Does have baseline CKD. Mentions that shortness of breath was worsened for the past few months. He is known to our practice from outside and before. Does have history of coronary artery disease and is status post CABG. As outpatient he was found to have decreased ejection fraction compared to 2021 and the plan was to have cardiac catheterization after nephrology clearance. Patient has always been concerned about worsening kidney function and has refused any imaging evaluation. Not in acute distress. No JVD. Mucosa is pink and wet. There is no carotid bruit. There is no goiter. Not using accessory muscles of breathing. Lung examination revealed scattered rhonchi and crackles in the lower lungs. Cardiac: Irregular, systolic murmur in the apex is heard. Abdomen is soft. Extremities reveal 2+ edema bilaterally. Past medical history includes coronary artery disease and status post CABG and also status post PCI (CABG was in and PCI's were in ), overweight/obese, CKD, hypertension, hyperlipidemia, atrial fibrillation (not on anticoagulation at this point, previously bled on Eliquis/Xarelto and patient refuses to take Coumadin and other anticoagulation). Patient has refused referral for Watchman device and has been kept on aspirin as outpatient. Other comorbidities include hypothyroidism, COPD, peripheral vascular disease and status post subclavian stenosis stenting. He usually goes to nephrology (Dr. Thompson) regularly. 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 He is ex smoker. Has repeatedly refused the offer for ICD/cardiac catheterization/watchman device/anticoagulation. Echocardiogram of January 2022 (performed at [facility]) revealed ejection fraction of 40 to 45% Echocardiogram of June 23, 2023 (performed in [facility]) revealed atrial fibrillation, ejection fraction of 20 to 25%, four-chamber dilatation and right ventricular systolic pressure of 40 mmHg. Echocardiogram of July 2023 revealed four-chamber dilatation, concentric left ventricular hypertrophy, ejection fraction of 30%, moderate mitral regurgitation, mild tricuspid regurgitation and right ventricular systolic pressure of 48 mmHg. Echocardiogram of September 28, 2024 (performed in the office) revealed four-chamber dilatation: Mild concentric left ventricular hypertrophy, ejection fraction of 30-35%, increased filling pressures of left ventricle was seen, aortic sclerosis with no stenosis was observed, moderate MR/TR, aortic root of 3.8 cm and right ventricular systolic pressure of 70 mm Hg. Hemoglobin: 11.4 -10.3 - 10.3 Platelet: 137 - 117 - 125 Troponin (high sensitive): 27 - 24 - 27 - 28 - 31 - 29 BNP: 1586.28 Creatinine: 2.28 - 1.96 - 2.11 - 2.28 - 2.23 Potassium: 5.3 - 4.1 - 4.5 - 3.6 - 3.9 M.2 - 2.1 Chest x-ray revealed: IMPRESSION: 1. Worsening bilateral airspace disease. 2. Cardiomegaly. EKG revealed: a-fib with RVR, IVCD Telemetry reveals atrial fibrillation with RVR later with MVR Echocardiogram reported: Four-chamber dilatation was observed. Left ventricle was dilated with reduced systolic function. LVEF was 30-35%. Diffuse hypokinesis with regional variation of left ventricle was seen. Left ventricular filling pressures were assessed to be elevated. Right ventricle was dilated with reduced systolic function. Both atria were moderately dilated. Aortic valve was not well visualized. Up to moderate aortic stenosis is suspected. There was trace aortic insufficiency. [id number] mitral regurgitation was observed. Moderate tricuspid regurgitation was observed. Pulmonary valve was not well visualized. IVC was dilated. Right ventricular systolic pressure was assessed at 75 mm Hg. 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 Patient is a 79-year-old gentleman who presented with worsening shortness of breath. Presentation is in favor of acute on chronic systolic heart failure. Acute coronary syndrome is not considered. Patient does have CKD which could have contributed to the clinical picture also. It is of note that the patient as outpatient has refused the offer for repeat ischemic workup/cardiac catheterization as he fears worsening kidney function. He also has refused the offer for ICD repeatedly. He also has repeatedly refused the offer for anticoagulation/Watchman device. Acute on chronic systolic heart failure KIRAN on CKD Peripheral vascular disease Atrial fibrillation with RVR Refusing full anticoagulation Hypertension Hyperlipidemia Peripheral vascular disease and status post subclavian stenosis/stenting Coronary artery disease, status post CABG Ischemic Cardiomyopathy Cardiac suggestion for management: Manage on telemetry IV Diuresis Follow-up electrolytes and kidney function test and correct abnormalities. Stop IV Amiodarone Oral Amiodarone: 200 mg HS Cardiac de [place], is stable Further evaluation and management depends on the above and clinical course A total of 55 minutes was spent reviewing the patient record, examining the patient, making a diagnostic and therapeutic plan, discussing this plan with medical personnel, following up on diagnostic studies and following the patient for clinical stability excluding any and all procedures. At least 50% of this time was spent in direct, [id number] contact. Thank you for allowing me to participate in this patient's care. Further recommendations will depend on patient's clinical course. Please do not hesitate to contact me if you have any questions or concerns. This medical document was created using electronic medical record system with [employer] computerized dictation system. Although this document has been carefully reviewed, there may still be some phonetic and typographical errors. These areas are purely typographical due to the imperfection of the software programs, and do not reflect any compromise in the patient's medical care. Dietary Evaluation Review Comments: CCHO-75 Renal diet with 50g protein restriction Expected Outcomes/Goals: monitor PO intake and uremic syndrome Plan discussed with: Patient BRUCE MOCK Meet [facility] Oct 14, 2024 06:30
[2024-10-14 06:51] LABS: Anion Gap 11 (5-15); Carbon Dioxide 27 mmol/L (20-31); Chloride 103 mmol/L (98-107); Potassium 3.9 mmol/L (3.5-5.1); Sodium 141 mmol/L (136-145)
[2024-10-14 06:52] LABS: Calcium 9.6 mg/dL (8.7-10.4)
[2024-10-14 06:57] LABS: BUN/Creatinine Ratio 27.8 (10.0-20.0)
[2024-10-14 06:58] LABS: Blood Urea Nitrogen 62 mg/dL (9-23); Glucose 268 mg/dL (74-106)
[2024-10-14] MEDS: predniSONE 20 MG TAB PO SCH (09:45)
[2024-10-14] MEDS: FUROSEMIDE 40 MG/4 ML VIAL IV SCH (09:51)
--- NOTE | 2024-10-14 15:54 | DVHPNRES ---
Progress Note Date Seen: Oct 14, 2024 Resident Creating Document: CEE REA RESIDENT Medical Necessity Reason Pt with a Central, PICC or Fol: No Subjective Review of Systems Steven An is a 79-year-old male with past medical history of atrial fibrillation, diabetes mellitus, hypertension, CHF, CKD 3B, COPD group E, presented to the ER with chief complains of difficulty in breathing. Shortness of breast started on Wednesday, progressively worsened. He reported on baseline he has shortness of breath while climbing stairs, recently it got worse and has been present while walking a 10 ft distance. On 2 L home oxygen. No complains of cough, fever, chest pain, palpitations. PSHx: CABG, 4 stents, cholecystectomy Social history: Quit smoking 10 years ago. Alcohol use 4 oz per day. Reports marijuana use. No recreational drug use. Lives in house with . Home medication: Jardiance, furosemide, metoprolol succinate, levothyroxine, Toujeo, potassium chloride, allopurinol, clopidogrel, pantoprazole, atorvastatin, Entresto Allergic to codeine, iodine, warfarin ROS: Constitutional: Denies weight loss, fever and chills. HEENT: Denies changes in vision and hearing. Respiratory: Shortness of breath Cardiovascular: Denies chest discomfort or palpitations GI: Denies abdominal pain, nausea, vomiting and diarrhea. : Denies dysuria and urinary frequency. Musculoskeletal: Denies myalgias and joint pain Skin: Wound on left buttock. Denies rash and pruritus. Neurological: Denies dizziness, headache, vision or hearing problems He was examined at bedside today. Reports improvement in symptoms. No new complaints today. Cardiology on board. Strict I&O in place, balance -1366. We will switch to oral medications, continue to monitor and manage. Objective vital signs Vital Sign Date Time Temp Pulse Resp B/P (MAP) Pulse Ox O2 Delivery O2 Flow Rate FiO2 10/14/24 12:30 97.8 81 17 124/72 (89) 99 97.8 10/14/24 11:00 Room Air* 0 21 Total Intake and Output 10/13/24 10/13/24 10/14/24 15:00 23:00 07:00 Intake Total 1000 ml 634 ml Output Total 2300 ml 700 ml Balance -1300 ml -66 ml medications Current Medications Medications Dose Ordered Sig/Herbert Route Start Time Stop Time Status Last Admin Dose Admin Sodium Chloride 10 ml Q8HR IV 10/09/24 14:00 10/14/24 05:41 10 ML Ondansetron HCl 4 mg Q4HP PRN IV 10/09/24 11:00 Acetaminophen 650 mg Q6HP PRN PO 10/09/24 11:00 Allopurinol 300 mg DAILY PO 10/10/24 10:00 10/14/24 09:46 300 MG Clopidogrel Bisulfate 75 mg DAILY PO 10/10/24 10:00 10/14/24 09:45 75 MG Empaglifozin 10 mg DAILY PO 10/10/24 10:00 10/14/24 09:45 10 MG Gabapentin 600 mg BID PO 10/09/24 22:00 10/14/24 09:44 600 MG Pantoprazole Sodium 40 mg DAILY PO 10/10/24 10:00 10/14/24 09:45 40 MG Patient Own Medication 1 tab DAILY PO 10/10/24 10:00 UNV Patient Own Medication 1 tab BID PO 10/09/24 22:00 UNV Patient Own Medication 50 unit DAILY SC 10/10/24 10:00 Patient Own Medication 25 mg DAILY PO 10/10/24 10:00 UNV Patient Own Medication 1 tab QAM PO 10/10/24 07:00 UNV Diagnostic Test (Pha) 1 strip ACHS 10/09/24 11:30 10/14/24 11:49 1 STRIP Dextrose 50 ml UD PRN IV 10/09/24 11:30 Ferrous Sulfate 325 mg BID PO 10/09/24 22:00 10/14/24 09:44 325 MG Metoprolol Succinate 25 mg DAILY PO 10/10/24 10:00 10/14/24 09:46 25 MG Levothyroxine Sodium 112 mcg QAM PO 10/10/24 07:00 10/14/24 06:41 112 MCG Levothyroxine Sodium 25 mcg QAM PO 10/10/24 07:00 10/14/24 06:41 25 MCG Acetazolamide Sodium 500 mg DAILY IV 10/11/24 09:00 10/14/24 09:44 500 MG Doxycycline Monohydrate 100 mg Q12HR PO 10/11/24 22:00 10/14/24 09:46 100 MG Levofloxacin 250 mg DAILY@1700 PO 10/12/24 17:00 10/13/24 17:11 250 MG Ipratropium [place] 0.5 mg Q4HPRN PRN NEB 10/12/24 07:45 10/14/24 10:59 0.5 MG Albuterol 2.5 mg Q6HR NEB 10/12/24 12:00 10/14/24 10:59 2.5 MG Amiodarone HCl 200 mg DAILY PO 10/13/24 22:00 10/14/24 09:45 200 MG Atorvastatin Calcium 80 mg HS PO 10/13/24 22:00 10/13/24 21:52 80 MG Insulin Human Lispro AC SC 10/13/24 07:00 10/14/24 11:48 2 UNITS Insulin Human Lispro 7 units AC SC 10/13/24 07:00 10/14/24 11:49 7 UNITS Bumetanide 1 mg BIDD PO 10/14/24 18:00 UNV Examination General: Patient alert and oriented in person, place and time. Patient following commands. HEENT: Normocephalic, atraumatic, moist mucous membranes Respiratory/pulmonary: Clear lungs bilaterally, vesicular murmurs present in almost all lung rodriguez, no associated crackles or wheezes. Cardiovascular: Mild Bilateral crackles and wheeze on auscultation. Abdomen: Abdomen nondistended, there is no pain to palpation in any of the abdominal quadrants, no palpable masses. Extremities: Grade 1 peripheral edema, improving Peripheral Pulses: 3+ Radial (R). 3+ Radial (L). 3+ Dorsalis pedis (R). 3+ Dorsalis pedis(L) Neurological: Intact cranial nerves with no focal neurologic deficits Other: Small wound on left buttock, 0.5x0.5cm open partial thickness wound with dark red,non-blanchable gasper wound ,no drainage/odor noted, wound dressing in place laboratory and microbiology Laboratory Tests 10/14/24 06:06 10/12/24 11:30 Test 10/14/24 06:06 Range/Units Serum Glucose 268 H 74-106 mg/dL Problem List/Assessment/Plan Problem List/Assessment/Plan Acute on chronic congestive heart failure with systolic dysfunction, HFrEF with LVEF 30-35% History of atrial fibrillation Elevated BNP CXR revealed enlarged cardiac silhouette Echo revealed LVEF 30-35%, four-chamber dilatation, moderate aortic stenosis, [id number] Mitral regurgitation, Moderate tricuspid regurgitation was observed. Pulmonary valve was not well visualized. IVC was dilated, right ventricular systolic pressure was assessed at 75 mm Hg, aortic root was dilated at 4.0 cm. Continues empagliflozin. EKG reveals: atrial fibrillation, right bundle branch block, borderline ST segment elevation On 2 L oxygen, same as home Started on oral Bumex. Discontinued furosemide IV and acetazolamide 500 mg IV Strict I&O on place. Cardiology on board Acute hypoxic respiratory failure due to COPD exacerbation, possible pneumonia, Gram-positive/ Gram-negative Tachycardia Tachypnea 3 L oxygen Med neb CXR shows worsening bilateral airspace disease Influenza, COVID ordered Continue IV azithromycin daily Continue mg neb treatment Hypothyroidism Continue home levothyroxine Diabetes mellitus Diabetic neuropathy Sliding scale insulin Continue gabapentin KIRAN on CKD due to VMN Normocytic, normochromic anemia, due to chronic disease, possible Mild thrombocytopenia Uremia Hyperkalemia Hypernatremia Elevated T bilirubin Elevated alkaline phosphatase Ulcer on left gluteal region, on admission Consulted Wound Care Discussed graft for wound management Peripheral vascular disease Hypertension Hyperlipidemia Coronary artery disease, status post CABG Ischemic Cardiomyopathy Peripheral vascular disease and status post subclavian stenosis/stenting Refusing full anticoagulation DIET: Cardiac GI PROPHYLAXIS: Protonix CODE STATUS: Goals of care discussed with patient at bedside for more than 25 minutes. DNR DNI DISPOSITION: Med/surge Patient's status and plan discussed with the patient. Case discussed with Dr. Rangel. Plan discussed with: Patient My Orders My Orders Orders - CEE REA Procedure Category Date Status Time Bumetanide Tablet PHA 10/14/24 Logged (Bumex Tablet) 18:00 Dietary Evaluation Review Comments: CCHO-75 Renal diet with 50g protein restriction Expected Outcomes/Goals: monitor PO intake and uremic syndrome Date of Service: Oct 14, 2024 Billing Provider: JED RANGEL MD Common Visit Codes: [id number] INP/OBS CARE(HIGH) CEE REA Oct 14, 2024 15:54 JED RANGEL MD Oct 16, 2024 21:09
[2024-10-14] MEDS: BUMETANIDE 1 MG TAB PO SCH (17:06)
[2024-10-15] VITALS (16 sets, daily range): BP systolic 94–164; BP diastolic 53–71; PULSE 70–87; RESP 14–26; TEMP 97.2–98.2; O2SAT 96–100
--- NOTE | 2024-10-15 04:42 | DVHPN2 ---
Progress Note - Dictate Date Seen: Oct 15, 2024 Medical Necessity Reason Pt with a Central, PICC or Fol: No vital signs Vital Sign Date Time Temp Pulse Resp B/P (MAP) Pulse Ox O2 Delivery O2 Flow Rate FiO2 10/15/24 01:00 97.4 76 19 107/53 (71) 97 97.4 10/15/24 00:37 Nasal Cannula* 1 24 Total Intake and Output 10/14/24 10/14/24 10/15/24 15:00 23:00 07:00 Intake Total 300 ml Output Total 290 ml 450 ml Balance 10 ml -450 ml medications Current Medications Medications Dose Ordered Sig/Herbert Route Start Time Stop Time Status Last Admin Dose Admin Sodium Chloride 10 ml Q8HR IV 10/09/24 14:00 10/14/24 22:18 10 ML Ondansetron HCl 4 mg Q4HP PRN IV 10/09/24 11:00 Acetaminophen 650 mg Q6HP PRN PO 10/09/24 11:00 Allopurinol 300 mg DAILY PO 10/10/24 10:00 10/14/24 09:46 300 MG Clopidogrel Bisulfate 75 mg DAILY PO 10/10/24 10:00 10/14/24 09:45 75 MG Empaglifozin 10 mg DAILY PO 10/10/24 10:00 10/14/24 09:45 10 MG Gabapentin 600 mg BID PO 10/09/24 22:00 10/14/24 22:18 600 MG Pantoprazole Sodium 40 mg DAILY PO 10/10/24 10:00 10/14/24 09:45 40 MG Patient Own Medication 1 tab DAILY PO 10/10/24 10:00 UNV Patient Own Medication 1 tab BID PO 10/09/24 22:00 UNV Patient Own Medication 50 unit DAILY SC 10/10/24 10:00 Patient Own Medication 25 mg DAILY PO 10/10/24 10:00 UNV Patient Own Medication 1 tab QAM PO 10/10/24 07:00 UNV Diagnostic Test (Pha) 1 strip ACHS 10/09/24 11:30 10/14/24 22:19 1 STRIP Dextrose 50 ml UD PRN IV 10/09/24 11:30 Ferrous Sulfate 325 mg BID PO 10/09/24 22:00 10/14/24 22:18 325 MG Metoprolol Succinate 25 mg DAILY PO 10/10/24 10:00 10/14/24 09:46 25 MG Levothyroxine Sodium 112 mcg QAM PO 10/10/24 07:00 10/14/24 06:41 112 MCG Levothyroxine Sodium 25 mcg QAM PO 10/10/24 07:00 10/14/24 06:41 25 MCG Acetazolamide Sodium 500 mg DAILY IV 10/11/24 09:00 10/14/24 09:44 500 MG Doxycycline Monohydrate 100 mg Q12HR PO 10/11/24 22:00 10/14/24 22:19 100 MG Levofloxacin 250 mg DAILY@1700 PO 10/12/24 17:00 10/14/24 17:06 250 MG Ipratropium [place] 0.5 mg Q4HPRN PRN NEB 10/12/24 07:45 10/15/24 00:37 0.5 MG Albuterol 2.5 mg Q6HR NEB 10/12/24 12:00 10/15/24 00:37 2.5 MG Amiodarone HCl 200 mg DAILY PO 10/13/24 22:00 10/14/24 09:45 200 MG Atorvastatin Calcium 80 mg HS PO 10/13/24 22:00 10/14/24 22:18 80 MG Insulin Human Lispro AC SD 10/13/24 07:00 10/14/24 17:08 2 UNITS Insulin Human Lispro 7 units AC SD 10/13/24 07:00 10/14/24 17:09 7 UNITS Bumetanide 1 mg BIDD PO 10/14/24 18:00 10/14/24 17:06 1 MG laboratory and microbiology Laboratory Tests 10/14/24 06:06 10/12/24 11:30 Test 10/14/24 06:06 Range/Units Serum Glucose 268 H 74-106 mg/dL Assessment/Plan Patient is a 79-year-old gentleman who was transferred from [facility] for shortness of breath. He is admitted with acute on chronic systolic heart failure/pulmonary edema. Cardiology is involved for cardiac aspects of care. He is known to have atrial fibrillation and systolic heart failure. Does have baseline CKD. Mentions that shortness of breath was worsened for the past few months. He is known to our practice from outside and before. Does have history of coronary artery disease and is status post CABG. As outpatient he was found to have decreased ejection fraction compared to 2021 and the plan was to have cardiac catheterization after nephrology clearance. Patient has always been concerned about worsening kidney function and has refused any imaging evaluation. Not in acute distress. No JVD. Mucosa is pink and wet. There is no carotid bruit. There is no goiter. Not using accessory muscles of breathing. Lung examination revealed scattered rhonchi and crackles in the lower lungs. Cardiac: Irregular, systolic murmur in the apex is heard. Abdomen is soft. Extremities reveal 2+ edema bilaterally. Past medical history includes coronary artery disease and status post CABG and also status post PCI (CABG was in and PCI's were in ), overweight/obese, CKD, hypertension, hyperlipidemia, atrial fibrillation (not on anticoagulation at this point, previously bled on Eliquis/Xarelto and patient refuses to take Coumadin and other anticoagulation). Patient has refused referral for Watchman device and has been kept on aspirin as outpatient. Other comorbidities include hypothyroidism, COPD, peripheral vascular disease and status post subclavian stenosis stenting. He usually goes to nephrology (Dr. Thompson) regularly. 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 He is ex smoker. Has repeatedly refused the offer for ICD/cardiac catheterization/watchman device/anticoagulation. Echocardiogram of January 2022 (performed at [facility]) revealed ejection fraction of 40 to 45% Echocardiogram of June 23, 2023 (performed in [facility]) revealed atrial fibrillation, ejection fraction of 20 to 25%, four-chamber dilatation and right ventricular systolic pressure of 40 mmHg. Echocardiogram of July 2023 revealed four-chamber dilatation, concentric left ventricular hypertrophy, ejection fraction of 30%, moderate mitral regurgitation, mild tricuspid regurgitation and right ventricular systolic pressure of 48 mmHg. Echocardiogram of September 28, 2024 (performed in the office) revealed four-chamber dilatation: Mild concentric left ventricular hypertrophy, ejection fraction of 30-35%, increased filling pressures of left ventricle was seen, aortic sclerosis with no stenosis was observed, moderate MR/TR, aortic root of 3.8 cm and right ventricular systolic pressure of 70 mm Hg. Hemoglobin: 11.4 -10.3 - 10.3 Platelet: 137 - 117 - 125 Troponin (high sensitive): - 24 - 27 - 28 - 31 - 29 BNP: 1586.28 Creatinine: 2.28 - 1.96 - 2.11 - 2.28 - 2.23 - 2.23 Potassium: 5.3 - 4.1 - 4.5 - 3.6 - 3.9 - 3.9 M.2 - 2.1 Chest x-ray revealed: IMPRESSION: 1. Worsening bilateral airspace disease. 2. Cardiomegaly. EKG revealed: a-fib with RVR, IVCD Telemetry reveals atrial fibrillation with RVR later with MVR Echocardiogram reported: Four-chamber dilatation was observed. Left ventricle was dilated with reduced systolic function. LVEF was 30-35%. Diffuse hypokinesis with regional variation of left ventricle was seen. Left ventricular filling pressures were assessed to be elevated. Right ventricle was dilated with reduced systolic function. Both atria were moderately dilated. Aortic valve was not well visualized. Up to moderate aortic stenosis is suspected. There was trace aortic insufficiency. [id number] mitral regurgitation was observed. Moderate tricuspid regurgitation was observed. Pulmonary valve was not well visualized. IVC was dilated. Right ventricular systolic pressure was assessed at 75 mm Hg. 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 Patient is a 79-year-old gentleman who presented with worsening shortness of breath. Presentation is in favor of acute on chronic systolic heart failure. Acute coronary syndrome is not considered. Patient does have CKD which could have contributed to the clinical picture also. It is of note that the patient as outpatient has refused the offer for repeat ischemic workup/cardiac catheterization as he fears worsening kidney function. He also has refused the offer for ICD repeatedly. He also has repeatedly refused the offer for anticoagulation/Watchman device. Acute on chronic systolic heart failure KIRAN on CKD Peripheral vascular disease Atrial fibrillation with RVR Refusing full anticoagulation Hypertension Hyperlipidemia Peripheral vascular disease and status post subclavian stenosis/stenting Coronary artery disease, status post CABG Ischemic Cardiomyopathy Cardiac suggestion for management: Manage on telemetry IV Diuresis Follow-up electrolytes and kidney function test and correct abnormalities. Stop IV Amiodarone Oral Amiodarone: 200 mg HS Cardiac de los santos, is stable Further evaluation and management depends on the above and clinical course A total of 55 minutes was spent reviewing the patient record, examining the patient, making a diagnostic and therapeutic plan, discussing this plan with medical personnel, following up on diagnostic studies and following the patient for clinical stability excluding any and all procedures. At least 50% of this time was spent in direct, [id number] contact. Thank you for allowing me to participate in this patient's care. Further recommendations will depend on patient's clinical course. Please do not hesitate to contact me if you have any questions or concerns. This medical document was created using electronic medical record system with [employer] computerized dictation system. Although this document has been carefully reviewed, there may still be some phonetic and typographical errors. These areas are purely typographical due to the imperfection of the software programs, and do not reflect any compromise in the patient's medical care. Dietary Evaluation Review Comments: CCHO-75 Renal diet with 50g protein restriction Expected Outcomes/Goals: monitor PO intake and uremic syndrome Plan discussed with: Patient BRUCE MOCK Meet BRICKLAYER SUPERVISOR Oct 15, 2024 04:42
[2024-10-15 07:54] LABS: Chloride 102 mmol/L (98-107); Potassium 3.9 mmol/L (3.5-5.1); Sodium 139 mmol/L (136-145)
[2024-10-15 07:55] LABS: Anion Gap 9 (5-15); Calcium 9.8 mg/dL (8.7-10.4); Carbon Dioxide 28 mmol/L (20-31)
[2024-10-15 08:01] LABS: Blood Urea Nitrogen 66 mg/dL (9-23); Glucose 268 mg/dL (74-106)
[2024-10-15 08:05] LABS: BUN/Creatinine Ratio 29.6 (10.0-20.0)
--- NOTE | 2024-10-15 09:27 | DVHDSRES ---
Discharge Summary Date of Admission Resident Creating Document: VIGRILIO LUNA RESIDENT Oct 09, 2024 at 10:53 Date of Discharge: Oct 15, 2024 Labs/Diagnostic Data: Laboratory Results Test 10/15/24 07:07 10/15/24 06:09 10/12/24 11:30 10/11/24 05:54 Sodium Level 139 mmol/L (136-145) Potassium Level 3.9 mmol/L (3.5-5.1) Chloride Level 102 mmol/L (98-107) Carbon Dioxide Level 28 mmol/L (20-31) Anion Gap 9 (5-15) Blood Urea Nitrogen 66 mg/dL (9-23) Creatinine 2.23 mg/dL (0.700-1.30) Glomerular Filtration Rate Calc 29 mL/min (>90) BUN/Creatinine Ratio 29.6 (10.0-20.0) Serum Glucose 268 mg/dL (74-106) Calcium Level 9.8 mg/dL (8.7-10.4) POC Glucose 284 mg/dl (70-106) White Blood Count 5.5 10^3/uL (4.4-10.8) Red Blood Count 3.21 10^6/uL (4.5-5.90) Hemoglobin 10.7 g/dL (13.5-17.5) Hematocrit 32.0 % (41.0-53.0) Mean Corpuscular Volume 99.5 fL (80.0-100.0) Mean Corpuscular Hemoglobin 33.4 pg (28.0-32.0) Mean Corpuscular Hemoglobin Concent 33.5 g/dL (32.0-36.0) Red Cell Distribution Width 15.9 % (11.8-14.3) Platelet Count 138 10^3/uL (140-450) Mean Platelet Volume 9.1 fL (6.9-10.8) Neutrophils (%) (Auto) 84.7 % (37.0-80.0) Lymphocytes (%) (Auto) 7.7 % (10.0-50.0) Monocytes (%) (Auto) 3.7 % (0.0-12.0) Eosinophils (%) (Auto) 3.6 % (0.0-7.0) Basophils (%) (Auto) 0.3 % (0.0-2.0) Neutrophils # (Auto) 4.6 10 ^3/uL (1.6-8.6) Lymphocytes # (Auto) 0.4 10 ^3/uL (0.4-5.4) Monocytes # (Auto) 0.2 10 ^3/uL (0-1.3) Eosinophils # (Auto) 0.2 10 ^3/uL (0-0.8) Basophils # (Auto) 0 10 ^3/uL (0-0.2) Nucleated Red Blood Cells 0.1 % Magnesium Level 2.1 mg/dL (1.6-2.6) Iron Level 13 ug/dL (65-175) Total Iron Binding Capacity 243 ug/dL (250-425) Percent Iron Saturation 5.3 % (20-55) Ferritin 149.8 ng/mL (22-322) Total Bilirubin 0.8 mg/dL (0.2-1.0) Aspartate Amino Transferase (AST) 18 U/L (13-40) Alanine Aminotransferase (ALT) 13 U/L (7-40) Alkaline Phosphatase 131 U/L (46-116) Total Protein 6.6 g/dL (5.7-8.2) Albumin 3.9 g/dL (3.2-4.8) Thyroid Stimulating Hormone (TSH) 0.77 uIU/mL (0.55-4.78) Test 10/10/24 19:35 10/10/24 17:44 10/09/24 13:55 10/09/24 07:48 Lactic Acid Level 1.4 mmol/L (0.4-2.0) Vitamin B12 Level 903 pg/mL (211-911) Folic Acid 45.58 ng/mL (>5.38) Influenza Type A Antigen Negative (Negative) Influenza Type B Antigen Negative (Negative) SARS-CoV-2 Antigen (Rapid) Negative (NEGATIVE) Troponin I High Sensitivity 29 ng/L (</=54) B-Type Natriuretic Peptide 1586.28 pg/mL (0-100) Other Laboratory Tests 10/15/24 07:07 10/12/24 11:30 Discharge Instruct/Medications Scheduled Allopurinol (Allopurinol), 3 TAB PO DAILY, (Reported) Atorvastatin Calcium (Lipitor), 1 TAB PO DAILY, (Reported) Clopidogrel Bisulfate (Plavix), 1 TAB PO DAILY, (Reported) Ferrous Sulfate (Gnp Iron), 1 TAB PO BID, (Reported) Furosemide (Furosemide), 1 TAB PO BID, (Reported) Gabapentin (Gabapentin), 1 CAP PO BID, (Reported) Insulin Glargine (Toujeo Solostar), 50 UNIT SC DAILY, (Reported) Levothyroxine Sodium (Levothyroxine Sodium), 1 TAB PO QAM, (Reported) Metoprolol Succinate (Metoprolol Succinate Er), 25 MG PO DAILY, (Reported) Pantoprazole Sodium Sesquihydr (Protonix), 1 TAB PO DAILY, (Reported) Sacubitril-Valsartan (Entresto 49-51 mg), 1 TAB PO BID, (Reported) Tramadol Hcl (Tramadol Hcl), 1 TAB PO BID, (Reported) Miscellaneous Medications Empagliflozin (Jardiance), 10 MG PO, (Reported) Discontinued Medications Furosemide (Furosemide), PO UD, (Reported) Levothyroxine Sodium (Levothyroxine Sodium), 150 MCG PO QAM, (Reported) Discharge Statement: "Patient was advised to return to the ER or call 911 if any headaches, dizziness, shortness of breath, chest pain, abdominal pain, bleeding, fevers, or worsening of medical condition. Patient was counseled about treatment plan, medications, possible side effects, patientverbalized understanding. All questions were answered to the best of my ability. This discharge took greater then 30 minutes in planning, reviewing documentation, counseling the patient, and discussing with other team members." ASSESSMENT ASSESSMENT Assessment VIRGILIO LUNA RESIDENT Oct 15, 2024 09:27
--- NOTE | 2024-10-15 16:47 | DVHPNRES ---
Progress Note Date Seen: Oct 15, 2024 Resident Creating Document: VIRGILIO LUNA RESIDENT Medical Necessity Reason Pt with a Central, PICC or Fol: No Subjective Patient reports: No new complaints Changes from previous H/P or p: No Changes Objective vital signs Vital Sign Date Time Temp Pulse Resp B/P (MAP) Pulse Ox O2 Delivery O2 Flow Rate FiO2 10/15/24 13:00 97.2 87 26 94/66 (75) 100 97.2 10/15/24 11:05 2.0 28 10/15/24 10:00 Nasal Cannula* Total Intake and Output 10/14/24 10/14/24 10/15/24 15:00 23:00 07:00 Intake Total 300 ml 240 ml Output Total 290 ml 750 ml Balance 10 ml -510 ml medications Current Medications Medications Dose Ordered Sig/Herbert Route Start Time Stop Time Status Last Admin Dose Admin Sodium Chloride 10 ml Q8HR IV 10/09/24 14:00 10/15/24 13:51 10 ML Ondansetron HCl 4 mg Q4HP PRN IV 10/09/24 11:00 Acetaminophen 650 mg Q6HP PRN PO 10/09/24 11:00 Allopurinol 300 mg DAILY PO 10/10/24 10:00 10/15/24 10:24 300 MG Clopidogrel Bisulfate 75 mg DAILY PO 10/10/24 10:00 10/15/24 10:24 75 MG Empaglifozin 10 mg DAILY PO 10/10/24 10:00 10/15/24 10:23 10 MG Gabapentin 600 mg BID PO 10/09/24 22:00 10/15/24 10:23 600 MG Pantoprazole Sodium 40 mg DAILY PO 10/10/24 10:00 10/15/24 10:23 40 MG Patient Own Medication 1 tab DAILY PO 10/10/24 10:00 UNV Patient Own Medication 1 tab BID PO 10/09/24 22:00 UNV Patient Own Medication 50 unit DAILY SC 10/10/24 10:00 Patient Own Medication 25 mg DAILY PO 10/10/24 10:00 UNV Patient Own Medication 1 tab QAM PO 10/10/24 07:00 UNV Diagnostic Test (Pha) 1 strip ACHS 10/09/24 11:30 10/15/24 11:30 1 STRIP Dextrose 50 ml UD PRN IV 10/09/24 11:30 Ferrous Sulfate 325 mg BID PO 10/09/24 22:00 10/15/24 10:23 325 MG Metoprolol Succinate 25 mg DAILY PO 10/10/24 10:00 10/15/24 10:23 25 MG Levothyroxine Sodium 112 mcg QAM PO 10/10/24 07:00 10/15/24 06:22 112 MCG Levothyroxine Sodium 25 mcg QAM PO 10/10/24 07:00 10/15/24 06:22 25 MCG Acetazolamide Sodium 500 mg DAILY IV 10/11/24 09:00 10/15/24 10:39 500 MG Doxycycline Monohydrate 100 mg Q12HR PO 10/11/24 22:00 10/15/24 10:24 100 MG Levofloxacin 250 mg DAILY@1700 PO 10/12/24 17:00 10/14/24 17:06 250 MG Ipratropium [place] 0.5 mg Q4HPRN PRN NEB 10/12/24 07:45 10/15/24 06:33 0.5 MG Albuterol 2.5 mg Q6HR NEB 10/12/24 12:00 10/15/24 06:33 2.5 MG Amiodarone HCl 200 mg DAILY PO 10/13/24 22:00 10/15/24 10:24 200 MG Atorvastatin Calcium 80 mg HS PO 10/13/24 22:00 10/14/24 22:18 80 MG Insulin Human Lispro AC SC 10/13/24 07:00 10/15/24 12:45 4 UNITS Bumetanide 1 mg BIDD PO 10/14/24 18:00 10/15/24 06:22 1 MG Examination General: Patient alert and oriented in person, place and time. Patient following commands. HEENT: Normocephalic, atraumatic, moist mucous membranes Respiratory/pulmonary: Clear lungs bilaterally, vesicular murmurs present in almost all lung rodriguez, no associated crackles or wheezes. on 2 L baseline oxygen Cardiovascular: Mild Bilateral crackles on auscultation. Abdomen: Abdomen nondistended, there is no pain to palpation in any of the abdominal quadrants, no palpable masses. Extremities: Grade 1 peripheral edema improved pitting edema Peripheral Pulses: 3+ Radial (R). 3+ Radial (L). 3+ Dorsalis pedis (R). 3+ Dorsalis pedis(L) Neurological: Intact cranial nerves with no focal neurologic deficits Other: Small wound on left buttock, 0.5x0.5cm open partial thickness wound with dark red,non-blanchable gasper wound ,no drainage/odor noted, wound dressing in place laboratory and microbiology Laboratory Tests 10/15/24 07:07 10/12/24 11:30 Test 10/15/24 07:07 Range/Units Serum Glucose 268 H 74-106 mg/dL Labs and/or images reviewed: Labs reviewed by me, Image(s) reviewed by me Problem List/Assessment/Plan Problem List/Assessment/Plan Assesment: #Acute on chronic congestive heart failure with systolic dysfunction, HFrEF with LVEF 30-35%, NYHA III, improving on diuresis #Chronic atrial fibrillation on telemetry #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, stable #Acute on chronic hypoxic respiratory failure #COPD exacerbation, s/p treatment #Possible pneumonia, Gram-positive/ Gram-negative, Community on abx #Hypothyroidism on levothyroxine #Diabetes mellitus #Diabetic neuropathy #KIRAN on CKD due to VMN, improving #Normocytic, normochromic anemia, due to chronic disease, possible #Mild thrombocytopenia #Uremia, improved #Hyperkalemia #Hypernatremia #Hyperbilirubinemia #Ulcer on left gluteal region, on admission outpatient surgical management s/p wound care #Peripheral vascular disease status post subclavian stenosis/stenting #Essential Hypertension #Hyperlipidemia #Coronary artery disease, status post CABG #Ischemic Cardiomyopathy #Refusing full anticoagulation #Medication nonadherence #Denies IV abx understanding the risk and benefit Plan: Continue medications for one more day. Medically improving for discharge within 24-48 hours. Transport home to [facility] tomorrow with . Has home oxygen and concentrator. Bedside care plan, clinical work, and goals of care discussed over 27 minutes. Case discussed with Dr. Rangel. Plan discussed with: Patient, Other (rn) My Orders My Orders Orders - VIRGILIO LUNA Procedure Category Date Status Time Pt Request For Service PT 10/15/24 Logged 09:25 Dietary Evaluation Review Comments: CCHO-75 Renal diet with 50g protein restriction Expected Outcomes/Goals: monitor PO intake and uremic syndrome VIRGILIO LUNA RESIDENT Oct 15, 2024 16:47
[2024-10-16] VITALS (14 sets, daily range): BP systolic 97–128; BP diastolic 50–72; PULSE 60–95; RESP 12–64; TEMP 36.8; O2SAT 93–100
--- NOTE | 2024-10-16 08:05 | DVHPN2 ---
Progress Note - Dictate Date Seen: Oct 16, 2024 Medical Necessity Reason Pt with a Central, PICC or Fol: No vital signs Vital Sign Date Time Temp Pulse Resp B/P (MAP) Pulse Ox O2 Delivery O2 Flow Rate FiO2 10/16/24 06:42 60 16 100 10/16/24 06:36 Nasal Cannula 2.0 10/16/24 06:36 28 10/16/24 06:12 117/61 10/16/24 05:00 98.0 98.0 Total Intake and Output 10/15/24 10/15/24 10/16/24 15:00 23:00 07:00 Intake Total 1520 ml 450 ml Output Total 1400 ml 510 ml Balance 120 ml -60 ml medications Current Medications Medications Dose Ordered Sig/Herbert Route Start Time Stop Time Status Last Admin Dose Admin Sodium Chloride 10 ml Q8HR IV 10/09/24 14:00 10/16/24 06:12 10 ML Ondansetron HCl 4 mg Q4HP PRN IV 10/09/24 11:00 Acetaminophen 650 mg Q6HP PRN PO 10/09/24 11:00 Allopurinol 300 mg DAILY PO 10/10/24 10:00 10/15/24 10:24 300 MG Clopidogrel Bisulfate 75 mg DAILY PO 10/10/24 10:00 10/15/24 10:24 75 MG Empaglifozin 10 mg DAILY PO 10/10/24 10:00 10/15/24 10:23 10 MG Gabapentin 600 mg BID PO 10/09/24 22:00 10/15/24 22:07 600 MG Pantoprazole Sodium 40 mg DAILY PO 10/10/24 10:00 10/15/24 10:23 40 MG Patient Own Medication 1 tab DAILY PO 10/10/24 10:00 UNV Patient Own Medication 1 tab BID PO 10/09/24 22:00 UNV Patient Own Medication 50 unit DAILY SC 10/10/24 10:00 Patient Own Medication 25 mg DAILY PO 10/10/24 10:00 UNV Patient Own Medication 1 tab QAM PO 10/10/24 07:00 UNV Diagnostic Test (Pha) 1 strip ACHS 10/09/24 11:30 10/16/24 06:13 1 STRIP Dextrose 50 ml UD PRN IV 10/09/24 11:30 Ferrous Sulfate 325 mg BID PO 10/09/24 22:00 10/15/24 22:07 325 MG Metoprolol Succinate 25 mg DAILY PO 10/10/24 10:00 10/15/24 10:23 25 MG Levothyroxine Sodium 112 mcg QAM PO 10/10/24 07:00 10/16/24 06:12 112 MCG Levothyroxine Sodium 25 mcg QAM PO 10/10/24 07:00 10/16/24 06:13 25 MCG Acetazolamide Sodium 500 mg DAILY IV 10/11/24 09:00 10/15/24 10:39 500 MG Doxycycline Monohydrate 100 mg Q12HR PO 10/11/24 22:00 10/15/24 22:07 100 MG Levofloxacin 250 mg DAILY@1700 PO 10/12/24 17:00 10/15/24 17:20 250 MG Ipratropium [place] 0.5 mg Q4HPRN PRN NEB 10/12/24 07:45 10/16/24 06:36 0.5 MG Albuterol 2.5 mg Q6HR NEB 10/12/24 12:00 10/16/24 06:36 2.5 MG Amiodarone HCl 200 mg DAILY PO 10/13/24 22:00 10/15/24 10:24 200 MG Atorvastatin Calcium 80 mg HS PO 10/13/24 22:00 10/15/24 22:07 80 MG Insulin Human Lispro AC SC 10/13/24 07:00 10/16/24 06:19 1 UNITS Bumetanide 1 mg BIDD PO 10/14/24 18:00 10/16/24 06:12 1 MG laboratory and microbiology Laboratory Tests 10/15/24 07:07 10/12/24 11:30 Test 10/15/24 07:07 Range/Units Serum Glucose 268 H 74-106 mg/dL Assessment/Plan Patient is a 79-year-old gentleman who was transferred from [facility] for shortness of breath. He is admitted with acute on chronic systolic heart failure/pulmonary edema. Cardiology is involved for cardiac aspects of care. He is known to have atrial fibrillation and systolic heart failure. Does have baseline CKD. Mentions that shortness of breath was worsened for the past few months. He is known to our practice from outside and before. Does have history of coronary artery disease and is status post CABG. As outpatient he was found to have decreased ejection fraction compared to 2021 and the plan was to have cardiac catheterization after nephrology clearance. Patient has always been concerned about worsening kidney function and has refused any imaging evaluation. Not in acute distress. No JVD. Mucosa is pink and wet. There is no carotid bruit. There is no goiter. Not using accessory muscles of breathing. Lung examination revealed scattered rhonchi and crackles in the lower lungs. Cardiac: Irregular, systolic murmur in the apex is heard. Abdomen is soft. Extremities reveal 2+ edema bilaterally. Past medical history includes coronary artery disease and status post CABG and also status post PCI (CABG was in and PCI's were in ), overweight/obese, CKD, hypertension, hyperlipidemia, atrial fibrillation (not on anticoagulation at this point, previously bled on Eliquis/Xarelto and patient refuses to take Coumadin and other anticoagulation). Patient has refused referral for Watchman device and has been kept on aspirin as outpatient. Other comorbidities include hypothyroidism, COPD, peripheral vascular disease and status post subclavian stenosis stenting. He usually goes to nephrology (Dr. Thompson) regularly. 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 He is ex smoker. Has repeatedly refused the offer for ICD/cardiac catheterization/watchman device/anticoagulation. Echocardiogram of January 2022 (performed at [facility]) revealed ejection fraction of 40 to 45% Echocardiogram of June 23, 2023 (performed in [facility]) revealed atrial fibrillation, ejection fraction of 20 to 25%, four-chamber dilatation and right ventricular systolic pressure of 40 mmHg. Echocardiogram of July 2023 revealed four-chamber dilatation, concentric left ventricular hypertrophy, ejection fraction of 30%, moderate mitral regurgitation, mild tricuspid regurgitation and right ventricular systolic pressure of 48 mmHg. Echocardiogram of September 28, 2024 (performed in the office) revealed four-chamber dilatation: Mild concentric left ventricular hypertrophy, ejection fraction of 30-35%, increased filling pressures of left ventricle was seen, aortic sclerosis with no stenosis was observed, moderate MR/TR, aortic root of 3.8 cm and right ventricular systolic pressure of 70 mm Hg. Hemoglobin: 11.4 -10.3 - 10.3 - 10.7 Platelet: 137 - 117 - 125 - 138 Troponin (high sensitive): 27 - 24 - 27 - 28 - 31 - 29 BNP: 1586.28 Creatinine: 2.28 - 1.96 - 2.11 - 2.25 - 2.28 - 2.23 - 2.23 Potassium: 5.3 - 4.1 - 4.5 - 4.3 - 3.6 - 3.9 - 3.9 M.2 - 2.1 TSH: 0.77 Chest x-ray revealed: IMPRESSION: 1. Worsening bilateral airspace disease. 2. Cardiomegaly. EKG revealed: a-fib with RVR, IVCD Telemetry reveals atrial fibrillation with RVR later with MVR Echocardiogram reported: Four-chamber dilatation was observed. Left ventricle was dilated with reduced systolic function. LVEF was 30-35%. Diffuse hypokinesis with regional variation of left ventricle was seen. Left ventricular filling pressures were assessed to be elevated. Right ventricle was dilated with reduced systolic function. Both atria were moderately dilated. Aortic valve was not well visualized. Up to moderate aortic stenosis is suspected. There was trace aortic insufficiency. [id number] mitral regurgitation was observed. Moderate tricuspid regurgitation was observed. Pulmonary valve was not well visualized. IVC was dilated. Right ventricular systolic pressure was assessed at 75 mm Hg. 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 Patient is a 79-year-old gentleman who presented with worsening shortness of breath. Presentation is in favor of acute on chronic systolic heart failure. Acute coronary syndrome is not considered. Patient does have CKD which could have contributed to the clinical picture also. It is of note that the patient as outpatient has refused the offer for repeat ischemic workup/cardiac catheterization as he fears worsening kidney function. He also has refused the offer for ICD repeatedly. He also has repeatedly refused the offer for anticoagulation/Watchman device. Acute on chronic systolic heart failure KIRAN on CKD Peripheral vascular disease Atrial fibrillation with RVR Refusing full anticoagulation Hypertension Hyperlipidemia Peripheral vascular disease and status post subclavian stenosis/stenting Coronary artery disease, status post CABG Ischemic Cardiomyopathy Cardiac suggestion for management: Manage on telemetry Continue Diuresis Follow-up electrolytes and kidney function test and correct abnormalities. Oral Amiodarone: 200 mg HS Cardiac [place], is stable Further evaluation and management depends on the above and clinical course A total of 55 minutes was spent reviewing the patient record, examining the patient, making a diagnostic and therapeutic plan, discussing this plan with medical personnel, following up on diagnostic studies and following the patient for clinical stability excluding any and all procedures. At least 50% of this time was spent in direct, [id number] contact. Thank you for allowing me to participate in this patient's care. Further recommendations will depend on patient's clinical course. Please do not hesitate to contact me if you have any questions or concerns. This medical document was created using electronic medical record system with [employer] computerized dictation system. Although this document has been carefully reviewed, there may still be some phonetic and typographical errors. These areas are purely typographical due to the imperfection of the software programs, and do not reflect any compromise in the patient's medical care. Dietary Evaluation Review Comments: CCHO-75 Renal diet with 50g protein restriction Expected Outcomes/Goals: monitor PO intake and uremic syndrome Plan discussed with: Patient, Other (nurse) RACHELE VERGARA MD Oct 16, 2024 08:05
--- NOTE | 2024-10-16 16:23 | DVHDSRES ---
Discharge Summary Date of Admission Resident Creating Document: CEE REA RESIDENT Oct 09, 2024 at 10:53 Date of Discharge: Oct 15, 2024 Labs/Diagnostic Data: Laboratory Results Test 10/16/24 13:43 10/15/24 07:07 10/12/24 11:30 10/11/24 05:54 POC Glucose 218 mg/dl (70-106) Sodium Level 139 mmol/L (136-145) Potassium Level 3.9 mmol/L (3.5-5.1) Chloride Level 102 mmol/L (98-107) Carbon Dioxide Level 28 mmol/L (20-31) Anion Gap 9 (5-15) Blood Urea Nitrogen 66 mg/dL (9-23) Creatinine 2.23 mg/dL (0.700-1.30) Glomerular Filtration Rate Calc 29 mL/min (>90) BUN/Creatinine Ratio 29.6 (10.0-20.0) Serum Glucose 268 mg/dL (74-106) Calcium Level 9.8 mg/dL (8.7-10.4) White Blood Count 5.5 10^3/uL (4.4-10.8) Red Blood Count 3.21 10^6/uL (4.5-5.90) Hemoglobin 10.7 g/dL (13.5-17.5) Hematocrit 32.0 % (41.0-53.0) Mean Corpuscular Volume 99.5 fL (80.0-100.0) Mean Corpuscular Hemoglobin 33.4 pg (28.0-32.0) Mean Corpuscular Hemoglobin Concent 33.5 g/dL (32.0-36.0) Red Cell Distribution Width 15.9 % (11.8-14.3) Platelet Count 138 10^3/uL (140-450) Mean Platelet Volume 9.1 fL (6.9-10.8) Neutrophils (%) (Auto) 84.7 % (37.0-80.0) Lymphocytes (%) (Auto) 7.7 % (10.0-50.0) Monocytes (%) (Auto) 3.7 % (0.0-12.0) Eosinophils (%) (Auto) 3.6 % (0.0-7.0) Basophils (%) (Auto) 0.3 % (0.0-2.0) Neutrophils # (Auto) 4.6 10 ^3/uL (1.6-8.6) Lymphocytes # (Auto) 0.4 10 ^3/uL (0.4-5.4) Monocytes # (Auto) 0.2 10 ^3/uL (0-1.3) Eosinophils # (Auto) 0.2 10 ^3/uL (0-0.8) Basophils # (Auto) 0 10 ^3/uL (0-0.2) Nucleated Red Blood Cells 0.1 % Magnesium Level 2.1 mg/dL (1.6-2.6) Iron Level 13 ug/dL (65-175) Total Iron Binding Capacity 243 ug/dL (250-425) Percent Iron Saturation 5.3 % (20-55) Ferritin 149.8 ng/mL (22-322) Total Bilirubin 0.8 mg/dL (0.2-1.0) Aspartate Amino Transferase (AST) 18 U/L (13-40) Alanine Aminotransferase (ALT) 13 U/L (7-40) Alkaline Phosphatase 131 U/L (46-116) Total Protein 6.6 g/dL (5.7-8.2) Albumin 3.9 g/dL (3.2-4.8) Thyroid Stimulating Hormone (TSH) 0.77 uIU/mL (0.55-4.78) Test 10/10/24 19:35 10/10/24 17:44 10/09/24 13:55 10/09/24 07:48 Lactic Acid Level 1.4 mmol/L (0.4-2.0) Vitamin B12 Level 903 pg/mL (211-911) Folic Acid 45.58 ng/mL (>5.38) Influenza Type A Antigen Negative (Negative) Influenza Type B Antigen Negative (Negative) SARS-CoV-2 Antigen (Rapid) Negative (NEGATIVE) Troponin I High Sensitivity 29 ng/L (</=54) B-Type Natriuretic Peptide 1586.28 pg/mL (0-100) Other Laboratory Tests 10/15/24 07:07 10/12/24 11:30 Brief Hx & Hospital Course: Brief history: Steven An is a 79-year-old male with past medical history of atrial fibrillation, diabetes mellitus, hypertension, CHF, CKD 3B, COPD group E, presented to the ER with chief complains of difficulty in breathing. Shortness of breast started on Wednesday, progressively worsened. He reported on baseline he has shortness of breath while climbing stairs, recently it got worse and has been present while walking a 10 ft distance. On 2 L home oxygen. No complains of cough, fever, chest pain, palpitations. Hospital stay: He was admitted along the lines of acute exacerbation of congestive heart failure. His labs revealed Elevated BNP. CXR revealed enlarged cardiac silhouette. Echo revealed LVEF 30-35%, four-chamber dilatation, moderate aortic stenosis, [id number] Mitral regurgitation IVC was dilated, right ventricular systolic pressure was assessed at 75 mm Hg, aortic root was dilated at 4.0 cm. He was started on IV diuretics, strict I&O. Cardiology was on board. Management with med neb treatment, IV antibiotics were started. He was managed with supplemental oxygen. His EKG reveals: atrial fibrillation, right bundle branch block, borderline ST segment elevation. Monitored with telemetry. Wound care consulted for ulcer on his left gluteal area. His condition improved, using home oxygen levels. His vitals stabilized, he is stable for discharge, will follow closely with PCP, Cardiology. 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, stable #Acute on chronic hypoxic respiratory failure #COPD exacerbation, s/p treatment #Possible pneumonia, Gram-positive, Gram-negative/ CAP mixed with aspiration pneumonia likely on arrival #Hypothyroidism on levothyroxine #Diabetes mellitus #Diabetic neuropathy #KIRAN on CKD due to VMN, improving #Normocytic, normochromic anemia, due to chronic disease, possible #Mild thrombocytopenia #Uremia, improved #Hyperkalemia #Hypernatremia #Hyperbilirubinemia #Ulcer on left gluteal region, on admission outpatient surgical management s/p wound care #Peripheral vascular disease status post subclavian stenosis/stenting #Essential Hypertension #Hyperlipidemia #Coronary artery disease, status post CABG #Ischemic Cardiomyopathy #Refusing full anticoagulation #Medication nonadherence #Denies IV abx understanding the risk and benefit #Genearalized deconditioning Discharge plan: Please follow with PCP in 1 week Please undergo a sleep study with PCP Please follow with Cardiology outpatient. Please follow-up with wound care Continue home medications Consults/Reason for consult Cardiology consulted, recommended IV Diuresis with Amiodarone. 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, stable #Acute on chronic hypoxic respiratory failure #COPD exacerbation, s/p treatment #Possible pneumonia, Gram-positive, Gram-negative/ CAP mixed with aspiration pneumonia likely on arrival #Hypothyroidism on levothyroxine #Diabetes mellitus #Diabetic neuropathy #KIRAN on CKD due to VMN, improving #Normocytic, normochromic anemia, due to chronic disease, possible #Mild thrombocytopenia #Uremia, improved #Hyperkalemia #Hypernatremia #Hyperbilirubinemia #Ulcer on left gluteal region, on admission outpatient surgical management s/p wound care #Peripheral vascular disease status post subclavian stenosis/stenting #Essential Hypertension #Hyperlipidemia #Coronary artery disease, status post CABG #Ischemic Cardiomyopathy #Refusing full anticoagulation #Medication nonadherence #Denies IV abx understanding the risk and benefit #Genearalized deconditioning Discharge Disposition: Home Discharge Instruct/Medications Diet: Cardiac 2g Na,low cholest Activity: No Restrictions, As Tolerated Follow Up/Referral: DC clinic follow up within [address] Rangel PCP follow up within 7 days Outpatient Physical Therapy to be prescribed by PCP in a paper prescription. Follow up with cardiology outpatient [place] as needed Home health arranged for physical therpay Medications: as per EHR Scheduled Allopurinol (Allopurinol), 3 TAB PO DAILY, (Reported) Atorvastatin Calcium (Lipitor), 1 TAB PO DAILY, (Reported) Clopidogrel Bisulfate (Plavix), 1 TAB PO DAILY, (Reported) Ferrous Sulfate (Gnp Iron), 1 TAB PO BID, (Reported) Furosemide (Furosemide), 1 TAB PO BID, (Reported) Gabapentin (Gabapentin), 1 CAP PO BID, (Reported) Insulin Glargine (Toujeo Solostar), 50 UNIT SC DAILY, (Reported) Levothyroxine Sodium (Levothyroxine Sodium), 1 TAB PO QAM, (Reported) Metoprolol Succinate (Metoprolol Succinate Er), 25 MG PO DAILY, (Reported) Pantoprazole Sodium Sesquihydr (Protonix), 1 TAB PO DAILY, (Reported) Sacubitril-Valsartan (Entresto 49-51 mg), 1 TAB PO BID, (Reported) Tramadol Hcl (Tramadol Hcl), 1 TAB PO BID, (Reported) Miscellaneous Medications Empagliflozin (Jardiance), 10 MG PO, (Reported) Discontinued Medications Furosemide (Furosemide), PO UD, (Reported) Levothyroxine Sodium (Levothyroxine Sodium), 150 MCG PO QAM, (Reported) Discharge Statement: "Patient was advised to return to the ER or call 911 if any headaches, dizziness, shortness of breath, chest pain, abdominal pain, bleeding, fevers, or worsening of medical condition. Patient was counseled about treatment plan, medications, possible side effects, patientverbalized understanding. All questions were answered to the best of my ability. This discharge took greater then 30 minutes in planning, reviewing documentation, counseling the patient, and discussing with other team members." ASSESSMENT ASSESSMENT Assessment CHF exacerbation HFREF COPD CAP mixed with aspiration pneumonia likely on arrival Genearalized deconditioning Acute on chronic hypoxic repiratory failure CEE REA RESIDENT Oct 16, 2024 16:23
== END 2024-10-16 18:45 | disposition home or self-care (01) | DRG 177 ==
LOC: ER 04:14 → EDBD 04:14 → OVERFLOW 10:53 → TELE-CENTR 16:28
PROVIDERS: ADMIT Student in an Organized Health Care Education/Training Program; ATTEND Student in an Organized Health Care Education/Training Program
DX: J15.69 Pneumonia due to other Gram-negative bacteria (principal); I50.23 Acute on chronic systolic (congestive) heart failure; N17.0 Acute kidney failure with tubular necrosis; J96.21 Acute and chronic respiratory failure with hypoxia; I13.0 Hypertensive heart and chronic kidney disease with heart failure and stage 1 through stage 4 chronic kidney disease, or unspecified chronic kidney disease; I48.20 Chronic atrial fibrillation, unspecified; J44.1 Chronic obstructive pulmonary disease with (acute) exacerbation; J44.0 Chronic obstructive pulmonary disease with (acute) lower respiratory infection; J15.9 Unspecified bacterial pneumonia; J69.0 Pneumonitis due to inhalation of food and vomit; E87.5 Hyperkalemia; E78.5 Hyperlipidemia, unspecified; E11.22 Type 2 diabetes mellitus with diabetic chronic kidney disease; N18.9 Chronic kidney disease, unspecified; I25.10 Atherosclerotic heart disease of native coronary artery without angina pectoris; I25.5 Ischemic cardiomyopathy; E03.9 Hypothyroidism, unspecified; E11.51 Type 2 diabetes mellitus with diabetic peripheral angiopathy without gangrene; I70.8 Atherosclerosis of other arteries; I07.1 Rheumatic tricuspid insufficiency; F17.210 Nicotine dependence, cigarettes, uncomplicated; F41.9 Anxiety disorder, unspecified; I34.0 Nonrheumatic mitral (valve) insufficiency; D64.9 Anemia, unspecified; D69.6 Thrombocytopenia, unspecified; E80.6 Other disorders of bilirubin metabolism; L98.419 Non-pressure chronic ulcer of buttock with unspecified severity; I35.0 Nonrheumatic aortic (valve) stenosis; I70.0 Atherosclerosis of aorta; Z79.4 Long term (current) use of insulin; Z79.84 Long term (current) use of oral hypoglycemic drugs; Z79.899 Other long term (current) drug therapy; Z88.5 Allergy status to narcotic agent; Z95.1 Presence of aortocoronary bypass graft; Z98.61 Coronary angioplasty status; Z99.81 Dependence on supplemental oxygen; Z91.041 Radiographic dye allergy status; Z91.048 Other nonmedicinal substance allergy status
CPT/HCPCS: 36415; 71045; 80048; 80053; 82607; 82728; 82746; 82962; 83540; 83550; 83605; 83735; 83880; 84443; 84484; 85025; 87426; 87804; 93005; 93306; 94640; 96374; 97110; 97116; 97163; G0378; J1815